=== PATIENT | male | born 1995 | race Caucasian/White ===

== ENCOUNTER → 2018-08-27 | Emergency (ER) | payer BC, OTHER ==
[~2018-08-27] VITALS: Ht 182.9 cm; Wt 130.6 kg
[~2018-08-27] MED LIST: CATHETER FLUSH 10 ML SYR IV PRN; FAMOTIDINE 20MG/2ML IV (PEPCID) IVP STA; IOPAMIDOL 61% 100 ML (ISOVUE 300) VIAL IV ONE; METF-399 PO; NS 100 ML (IVPB) BAG IV ONE; NS IV 1000 ML 1,000 ML IV STA; ONDA8TAB13 PO; RECEIVED CONTRAST 20 ML VIAL IV SCH; SERT100T PO; TRAZ-189 PO
--- NOTE | 2018-08-27 18:40 | ED GI ---
General Chief Complaint: Abdominal/GI Problems Stated Complaint: ABD PAIN,VOMITING Nursing Triage Note: WOKE UP THIS AM ABOUT 0800 WITH EPIGASTRIC ABD PAIN AND HAS VOMITED 3 TIMES SINCE THIS AM. HE WENT TO WALK IN CARE AND WAS SENT HERE FOR IMAGING. REPORTS WALK IN CARE GAVE HIM A ZOFRAN ODT. Sepsis Screen: No Definite Risk History of Present Illness Date Seen by Provider: Aug 27, 2018 Time Seen by Provider: 18:10 Timing/Duration: 1-2 Days Severity/Quality: Moderate Location: RUQ, Epigastric Radiation: No Radiation Activities at Onset: None Modifying Factors: Improves With Vomiting Associated Symptoms: Fever/Chills, Nausea/Vomiting This is a 23-year-old male who complains of one day and intermittent nonbilious nonbloody vomiting and epigastric pain. The pain waxes and wanes without modifying factors. His nausea improved after getting Zofran at urgent care. He has had a subjective fever. Bowel movements are unchanged, not black, not bloody. No history of abdominal surgeries. Allergies and Home Medications Allergies Coded Allergies: amoxicillin (Verified Allergy, Severe, ANAPHYLAXIS, 08/27/18) clavulanic acid (Verified Allergy, Severe, ANAPHYLAXIS, 08/27/18) Patient Home Medication List Home Medication List Reviewed: Yes Review of Systems Review of Systems Constitutional: see HPI EENTM: No Symptoms Reported Respiratory: No Symptoms Reported Cardiovascular: No Symptoms Reported Gastrointestinal: See HPI Genitourinary: No Symptoms Reported Musculoskeletal: no symptoms reported Skin: no symptoms reported Psychiatric/Neurological: No Symptoms Reported Endocrine: No Symptoms Reported Hematologic/Lymphatic: No Symptoms Reported Past Kumqnrs-Dndpcu-Hzphrt Hx Past Med/Social Hx: Reviewed Nursing Past Med/Soc Hx Patient Social History Alcohol Use: Denies Use Recreational Drug Use: No Recent Foreign Travel: No Contact w/Someone Who Travel: No Recent Infectious Disease Expo: No Recent Hopitalizations: No Physical Abuse: No Sexual Abuse: No Mistreated: No Fear: No Seasonal Allergies Seasonal Allergies: No Past Medical History Surgeries: Yes Orthopedic, Tonsillectomy Respiratory: No Cardiac: No Neurological: No Genitourinary: No Gastrointestinal: No Musculoskeletal: No Endocrine: Yes Diabetes, Non-Insulin dep HEENT: No Cancer: No Psychosocial: Yes Depression Integumentary: No Blood Disorders: No Physical Exam Vital Signs Vital Signs - First Documented 08/27/18 18:11 Temp 98.4 Pulse 84 Resp 18 B/P (MAP) 124/74 (91) Pulse Ox 96 O2 Delivery Room Air Capillary Refill : Less Than 3 Seconds Height/Weight/BMI Height: 6'0" Weight: 288lbs. oz. 130.990221dm; BMI Method:Stated General Appearance: no apparent distress HEENT: normal ENT inspection Neck: full range of motion Respiratory: lungs clear Cardiovascular: normal peripheral pulses, regular rate, rhythm Gastrointestinal: other (soft, moderate epigastric and right upper quadrant tenderness with mild right lower quadrant tenderness, no rebound rigidity or guarding, negative Rovsing) Extremities: non-tender, no pedal edema Skin: warm/dry Progress/Results/Core Measures Results/Orders Lab Results Laboratory Tests Test 08/27/18 18:31 08/27/18 20:15 Range/Units White Blood Count 15.6 H 4.3-11.0 10^3/uL Red Blood Count 6.06 H 4.35-5.85 10^6/uL Hemoglobin 19.3 H 13.3-17.7 G/DL Hematocrit 54 40-54 % Mean Corpuscular Volume 89 80-99 FL Mean Corpuscular Hemoglobin 32 25-34 PG Mean Corpuscular Hemoglobin Concent 36 32-36 G/DL Red Cell Distribution Width 12.4 10.0-14.5 % Platelet Count 215 130-400 10^3/uL Mean Platelet Volume 10.3 7.4-10.4 FL Sodium Level 138 135-145 MMOL/L Potassium Level 4.4 3.6-5.0 MMOL/L Chloride Level 97 L 98-107 MMOL/L Carbon Dioxide Level 21 21-32 MMOL/L Anion Gap 20 H 5-14 MMOL/L Blood Urea Nitrogen 13 7-18 MG/DL Creatinine 0.98 0.60-1.30 MG/DL Estimat Glomerular Filtration Rate > 60 BUN/Creatinine Ratio 13 Glucose Level 221 H 70-105 MG/DL Calcium Level 10.7 H 8.5-10.1 MG/DL Corrected Calcium 8.5-10.1 MG/DL Total Bilirubin 0.8 0.1-1.0 MG/DL Aspartate Amino Transf (AST/SGOT) 53 H 5-34 U/L Alanine Aminotransferase (ALT/SGPT) 111 H 0-55 U/L Alkaline Phosphatase 90 40-136 U/L Total Protein 8.8 H 6.4-8.2 GM/DL Albumin 5.0 H 3.2-4.5 GM/DL Lipase 24 8-78 U/L Urine Color YELLOW Urine Clarity CLEAR Urine pH 5.5 5-9 Urine Specific [place] 1.020 1.016-1.022 Urine Protein 1+ H NEGATIVE Urine Glucose (UA) TRACE H NEGATIVE Urine Ketones NEGATIVE NEGATIVE Urine Nitrite NEGATIVE NEGATIVE Urine Bilirubin NEGATIVE NEGATIVE Urine Urobilinogen 0.2 NORMAL MG/DL Urine Leukocyte Esterase NEGATIVE NEGATIVE Urine RBC (Auto) NEGATIVE NEGATIVE My Orders Orders - AUNG VERA DO Ct Abd/Pelv W (Appendicitis) (08/27/18 18:21) Comprehensive Metabolic Panel (08/27/18 18:21) Lipase (08/27/18 18:21) Cbc With Automated Diff (08/27/18 18:21) Famotidine Injection (Pepcid Injection) (08/27/18 18:46) Ns Iv 1000 Ml (Sodium Chloride 0.9%) (08/27/18 18:46) Urinalysis Dipstick Only (08/27/18 18:46) Iopamidol 61% Injection (Isovue 300 61% (08/27/18 19:00) Sodium Chloride Flush (Catheter Flush Sy (08/27/18 19:00) Received Contrast (Contrast Received) (08/27/18 19:00) Ns (Ivpb) (Sodium Chloride 0.9% Ivpb Bag (08/27/18 19:00) Cbc No Diff (08/27/18 19:27) Comprehensive Metabolic Panel (08/27/18 19:27) Lipase (08/27/18 19:27) Medications Given in ED Current Medications Medications Dose Ordered Sig/Emily Route Start Time Stop Time Status Last Admin Dose Admin Iopamidol 100 ml ONCE ONCE IV 08/27/18 19:00 08/27/18 19:01 DC 08/27/18 20:12 100 ML Sodium Chloride 10 ml NEEDED PRN IV 08/27/18 19:00 08/27/18 20:12 10 ML Sodium Chloride 100 ml ONCE ONCE IV 08/27/18 19:00 08/27/18 19:01 DC 08/27/18 20:12 100 ML Vital Signs/I&O 08/27/18 18:11 Temp 98.4 Pulse 84 Resp 18 B/P (MAP) 124/74 (91) Pulse Ox 96 O2 Delivery Room Air Blood Pressure Mean: 91 Progress Progress Note : Progress Note Differential includes gastroenteritis, gastritis, peptic ulcer disease, ileocolic, cholecystitis, appendicitis. We will check basic labs and a CT of the abdomen and pelvis with IV contrast. Departure Impression Primary Impression: Nausea and vomiting Additional Impressions: Fatty liver Hyperglycemia Disposition: HOME, SELF-CARE Condition: Stable Departure-Patient Inst. Referrals: DASH MARR MD (PCP) Primary Care Physician TIFFANY AGUIAR DO (Family) Primary Care Physician Patient Instructions: Nausea and Vomiting, Adult (DC) Scripts Ondansetron (Ondansetron Odt) 8 Mg Tab.rapdis 8 MG PO BID PRN for NAUSEA/VOMITING-1ST LINE for 7 Days, #20 TAB Prov: AUNG VERA DO 08/27/18 AUNG VERA DO Aug 27, 2018 18:40
[2018-08-27 19:40] LABS: HEMOGLOBIN 19.3 G/DL (13.3-17.7); MEAN PLATELET VOLUME 10.3 FL (7.4-10.4); RED CELL DISTRIBUTION WIDTH 12.4 % (10.0-14.5); WHITE BLOOD COUNT 15.6 10^3/uL (4.3-11.0)
[2018-08-27 19:51] LABS: BUN/CREATININE RATIO 13; CARBON DIOXIDE 21 MMOL/L (21-32); CHLORIDE 97 MMOL/L (98-107); CREATININE SERUM 0.98 MG/DL (0.60-1.30); GFR ESTIMATED > 60; POTASSIUM 4.4 MMOL/L (3.6-5.0); SODIUM 138 MMOL/L (135-145)
[2018-08-27 19:52] LABS: ALANINE AMINOTRANSFERASE 111 U/L (0-55); ALKALINE PHOSPHATASE 90 U/L (40-136); BILIRUBIN,TOTAL 0.8 MG/DL (0.1-1.0); CALCIUM 10.7 MG/DL (8.5-10.1); GLUCOSE 221 MG/DL (70-105); LIPASE 24 U/L (8-78); TOTAL PROTEIN 8.8 GM/DL (6.4-8.2)
[2018-08-27 20:23] LABS: BILIRUBIN,URINE NEGATIVE (NEGATIVE); CLARITY,URINE CLEAR; COLOR,URINE YELLOW; GLUCOSE, URINE (UA) TRACE (NEGATIVE); KETONES,URINE NEGATIVE (NEGATIVE); LEUKOCYTE ESTERASE ,URINE NEGATIVE (NEGATIVE); NITRITE,URINE NEGATIVE (NEGATIVE); PH,URINE 5.5 (5-9); PROTEIN,URINE 1+ (NEGATIVE); UROBILINOGEN,URINE 0.2 MG/DL (NORMAL)
--- NOTE | 2018-08-27 20:30 | Diagnostic Imaging Report ---
PROCEDURE: CT abdomen and pelvis with contrast, rule out appendicitis. TECHNIQUE: Multiple contiguous axial images were obtained through the abdomen and pelvis after the administration of intravenous contrast. INDICATION: Epigastric pain and vomiting. COMPARISON: None. FINDINGS: There is no appendicitis. There is no diverticulitis. There is fatty infiltration of the liver without bile duct dilatation. There is no CT findings of pancreatitis. The adrenals, spleen and kidneys are unobstructed and unremarkable. There is no pneumatosis. There is no free gas. There is some thickening of the rojas of the urinary bladder; however, it is poorly distended limiting its evaluation. There is questionable findings for thickening of the rojas of the lower rectum but it is also nondistended. No perirectal edema. No fluid collection. No pneumatosis. No free gas. IMPRESSION: 1. No evidence for appendicitis. Questionable findings for thickening of the undistended urinary bladder wall and rectal wall. 2. Fatty liver without biliary dilatation or pancreatitis. Dictated by: Dictated on workstation # [id number]
[2018-08-27 20:50] VITALS: BP 124/74
== END | disposition home or self-care (01) ==
LOC: EDUNIT# 17:49 → ER FS 17:51
DX: R11.2 Nausea with vomiting, unspecified (principal); K76.0 Fatty (change of) liver, not elsewhere classified; E11.65 Type 2 diabetes mellitus with hyperglycemia; F32.9 Major depressive disorder, single episode, unspecified; Z88.0 Allergy status to penicillin; Z88.8 Allergy status to other drugs, medicaments and biological substances; Z90.89 Acquired absence of other organs
CPT/HCPCS: 36415; 74177; 80053; 81002; 83690; 85027

== ENCOUNTER 2020-10-11 08:35 | Emergency (ER) | payer OTHER ==
[~2020-10-11] VITALS: Ht 182.9 cm; Wt 121.9 kg
[~2020-10-11 08:35] MED LIST changes: -CATHETER FLUSH 10 ML SYR IV PRN; -FAMOTIDINE 20MG/2ML IV (PEPCID) IVP STA; -IOPAMIDOL 61% 100 ML (ISOVUE 300) VIAL IV ONE; -NS 100 ML (IVPB) BAG IV ONE; -NS IV 1000 ML 1,000 ML IV STA; -RECEIVED CONTRAST 20 ML VIAL IV SCH; -TRAZ-189 PO; +TRZ50T PO
[2020-10-11] MEDS ORDERED: KETOROLAC 30 MG/ML VIAL IVP STA (08:56)
[2020-10-11] MEDS ORDERED: PANTOPRAZOLE 40 MG (PROTONIX) VIAL IV STA (08:56)
[2020-10-11] MEDS ORDERED: ONDANSETRON 4 MG/2 ML (SDV) Z0FRAN IVP STA (08:56)
[2020-10-11] MEDS ORDERED: NS IV 1000 ML 1,000 ML IV STA ×2 (08:56→10:25)
--- NOTE | 2020-10-11 09:04 | ED GI ---
General Chief Complaint: Abdominal/GI Problems Stated Complaint: N/V | DIARRHEA | TICK BITE Nursing Triage Note: Patient reports he has had nausea/vomiting/diarrhea for 1 week, states food tastes and smells "gross." Sepsis Screen: No Definite Risk Source of Information: Patient History of Present Illness Date Seen by Provider: Oct 11, 2020 Time Seen by Provider: 08:37 Initial Comments 25-year-old male presenting with complaints of over a week of nausea, vomiting, diarrhea. He states that the smell and taste of food makes him nauseated. He had a tick bite about a week prior to onset of symptoms so was concerned that was causing some of this for him and he went [facility] and they ran a tick borne illness panel. This was negative per patient's report. He has an appointment to see his primary care provider, Dr. Dash Marr. However this appointment is not until next week. He felt that he could not wait until then since he was feeling worse in the last 2 or 3 days. He denies any fever or chills. He feels like he gets dizzy and lightheaded when he stands up. He has had over 6 yellow-colored diarrhea stools the last 24 hours. He did keep water down around 1 AM but has not had anything to eat since yesterday. He has increased pain when he tries to eat or drink anything. He also has increased pain when he has a bowel movement. He feels like he has an aching pain at a 4 out of 10 in the right upper quadrant. This does wrap around to the right side and flank. He denies any pain or burning with urination. He has increased pain up to a 7 or 8 when the area is palpated or when he is bending over. He has not taken anything for pain or for nausea. He denies any surgeries on his abdomen in the past. Timing/Duration: 1 Week, Getting Worse Severity/Quality: Moderate, Aching Location: RUQ Radiation: Flank Activities at Onset: None Modifying Factors: Worsens With Defecating, Worsens With Eating, Worsens With Movement, Worsens With Palpation Associated Symptoms: No Back Pain, No Chest Pain, No Diaphoresis, No Fever/Chills, No Fatigue, No Headache, No Heartburn; Nausea/Vomiting; No Rash, No Shortness of Air, No Swelling/Mass in Abdomen, No Syncope, No Weakness Allergies and Home Medications Allergies Coded Allergies: amoxicillin (Verified Allergy, Severe, ANAPHYLAXIS, 08/27/18) clavulanic acid (Verified Allergy, Severe, ANAPHYLAXIS, 08/27/18) Home Medications Ondansetron 8 Mg Tab.rapdis, 8 MG PO BID PRN for NAUSEA/VOMITING-1ST LINE Prescribed by: IGGY MCRAE on 10/11/20 1143 Patient Home Medication List Home Medication List Reviewed: Yes Review of Systems Review of Systems Constitutional: No chills; dizziness (with standing); No fever EENTM: No Symptoms Reported Respiratory: No Symptoms Reported Cardiovascular: No Symptoms Reported Gastrointestinal: See HPI Genitourinary: See HPI Musculoskeletal: no symptoms reported Skin: No rash Psychiatric/Neurological: Denies Headache Endocrine: No Symptoms Reported Hematologic/Lymphatic: No Symptoms Reported Past Httaxya-Kpenof-Qnjvnl Hx Past Med/Social Hx: Reviewed Nursing Past Med/Soc Hx Patient Social History Alcohol Use: Denies Use Smoking Status: Never a Smoker 2nd Hand Smoke Exposure: No Recent Infectious Disease Expo: No Recent Hopitalizations: No Seasonal Allergies Seasonal Allergies: No Past Medical History Surgeries: Yes Orthopedic, Tonsillectomy Respiratory: No Cardiac: No Neurological: No Genitourinary: No Gastrointestinal: No Musculoskeletal: No Endocrine: Yes Diabetes, Non-Insulin dep HEENT: No Cancer: No Psychosocial: Yes Depression Integumentary: No Blood Disorders: No Physical Exam Vital Signs Vital Signs - First Documented 10/11/20 08:38 Temp 36.1 Pulse 90 Resp 16 B/P (MAP) 144/84 (104) Pulse Ox 97 O2 Delivery Room Air Capillary Refill : Less Than 3 Seconds Height/Weight/BMI Height: 6'0" Weight: 288lbs. oz. 130.162021du; 36.00 BMI Method:Stated General Appearance: WD/WN, no apparent distress, obese HEENT: PERRL/EOMI Neck: non-tender, full range of motion, supple, normal inspection Respiratory: chest non-tender, lungs clear, normal breath sounds, no respiratory distress, no accessory muscle use Cardiovascular: normal peripheral pulses, regular rate, rhythm Gastrointestinal: normal bowel sounds, soft, no pulsatile mass; No distended, No guarding, No rebound; tenderness (RUQ positive Garcia's sign); No mass Rectal: deferred Extremities: normal range of motion, normal capillary refill Neurologic/Psychiatric: director of maintenance II-XII nml as tested, alert, oriented x 3 Skin: normal color, warm/dry Images 1 - RUQ pain with palpation. Pain wraps around right flank. No rebound. Positive Garcia's Progress/Results/Core Measures Results/Orders Lab Results Laboratory Tests Test 10/11/20 09:15 10/11/20 10:03 Range/Units White Blood Count 5.8 4.3-11.0 10^3/uL Red Blood Count 5.54 4.35-5.85 10^6/uL Hemoglobin 17.6 13.3-17.7 G/DL Hematocrit 48 40-54 % Mean Corpuscular Volume 87 80-99 FL Mean Corpuscular Hemoglobin 32 25-34 PG Mean Corpuscular Hemoglobin Concent 37 H 32-36 G/DL Red Cell Distribution Width 11.8 10.0-14.5 % Platelet Count 159 130-400 10^3/uL Mean Platelet Volume 10.1 7.4-10.4 FL Immature Granulocyte % (Auto) 1 % Neutrophils (%) (Auto) 57 42-75 % Lymphocytes (%) (Auto) 28 12-44 % Monocytes (%) (Auto) 8 0-12 % Eosinophils (%) (Auto) 6 0-10 % Basophils (%) (Auto) 0 0-10 % Neutrophils # (Auto) 3.3 1.8-7.8 X 10^3 Lymphocytes # (Auto) 1.7 1.0-4.0 X 10^3 Monocytes # (Auto) 0.5 0.0-1.0 X 10^3 Eosinophils # (Auto) 0.3 0.0-0.3 10^3/uL Basophils # (Auto) 0.0 0.0-0.1 10^3/uL Immature Granulocyte # (Auto) 0.0 0.0-0.1 10^3/uL Sodium Level 137 135-145 MMOL/L Potassium Level 3.9 3.6-5.0 MMOL/L Chloride Level 102 98-107 MMOL/L Carbon Dioxide Level 25 21-32 MMOL/L Anion Gap 10 5-14 MMOL/L Blood Urea Nitrogen 9 7-18 MG/DL Creatinine 0.85 0.60-1.30 MG/DL Estimat Glomerular Filtration Rate > 60 BUN/Creatinine Ratio 11 Glucose Level 293 H 70-105 MG/DL Calcium Level 9.3 8.5-10.1 MG/DL Corrected Calcium 9.2 8.5-10.1 MG/DL Total Bilirubin 0.7 0.1-1.0 MG/DL Aspartate Amino Transf (AST/SGOT) 24 5-34 U/L Alanine Aminotransferase (ALT/SGPT) 51 0-55 U/L Alkaline Phosphatase 71 40-136 U/L Total Protein 6.6 6.4-8.2 GM/DL Albumin 4.1 3.2-4.5 GM/DL Lipase 28 8-78 U/L Urine Color DARK YELLOW Urine Clarity CLEAR Urine pH 5.5 5-9 Urine Specific [place] >=1.030 1.016-1.022 Urine Protein NEGATIVE NEGATIVE Urine Glucose (UA) 3+ H NEGATIVE Urine Ketones 1+ H NEGATIVE Urine Nitrite NEGATIVE NEGATIVE Urine Bilirubin NEGATIVE NEGATIVE Urine Urobilinogen 0.2 < = 1.0 MG/DL Urine Leukocyte Esterase NEGATIVE NEGATIVE Urine RBC (Auto) NEGATIVE NEGATIVE Urine RBC 0-2 /HPF Urine WBC 0-2 /HPF Urine Squamous Epithelial Cells 0-2 /HPF Urine Crystals NONE /LPF Urine Bacteria NEGATIVE /HPF Urine Casts NONE /LPF Urine Mucus NEGATIVE /LPF Urine Culture Indicated NO My Orders Orders - IGGY MCRAE MD Comprehensive Metabolic Panel (10/11/20 08:54) Lipase (10/11/20 08:54) Ua Culture If Indicated (10/11/20 08:54) Ed Iv/Invasive Line Start (10/11/20 08:54) Cbc With Automated Diff (10/11/20 08:54) Ct Abdomen/Pelvis W (10/11/20 08:54) Fecal Wbc (10/11/20 08:54) Isolation Central Supply Req (10/11/20 08:54) Ns Iv 1000 Ml (Sodium Chloride 0.9%) (10/11/20 08:56) Ondansetron Injection (Zofran Injectio (10/11/20 08:56) Pantoprazole Injection (Protonix Injecti (10/11/20 08:56) Ketorolac Injection (Toradol Injection) (10/11/20 08:56) Iohexol Injection (Omnipaque 350 Mg/Ml 1 (10/11/20 09:45) Received Contrast (Hold Metformin- Contr (10/11/20 09:45) Sodium Chloride Flush (Catheter Flush Sy (10/11/20 09:45) Ns (Ivpb) (Sodium Chloride 0.9% Ivpb Bag (10/11/20 09:45) Ns Iv 1000 Ml (Sodium Chloride 0.9%) (10/11/20 10:25) Us Abdomen Limited [id number] (10/11/20 10:44) Medications Given in ED Current Medications Medications Dose Ordered Sig/Emily Route Start Time Stop Time Status Last Admin Dose Admin Iohexol 100 ml ONCE ONCE IV 10/11/20 09:45 10/11/20 09:47 DC 10/11/20 10:06 100 ML Sodium Chloride 10 ml NEEDED PRN IV 10/11/20 09:45 10/11/20 11:54 DC 10/11/20 10:06 10 ML Sodium Chloride 100 ml ONCE ONCE IV 10/11/20 09:45 10/11/20 09:47 DC 10/11/20 10:06 80 ML Vital Signs/I&O 10/11/20 10/11/20 08:38 11:49 Temp 36.1 Pulse 90 77 Resp 16 16 B/P (MAP) 144/84 (104) 132/76 Pulse Ox 97 98 O2 Delivery Room Air Room Air Blood Pressure Mean: 104 Progress Progress Note #1: Progress Note Order labs to evaluate blood count as well as electrolytes and liver and pancreas. CT scan of the abdomen and pelvis to evaluate his abdomen for the colon as well as liver, gallbladder, pancreas, kidneys and stomach. Give IV fluids for hydration, Zofran for nausea, Toradol for pain, Protonix for pain and gastritis. If he has diarrhea stool here will send for cultures and evaluation. Differential diagnosis would include cholecystitis, gastroenteritis, parasitic infection such as Giardia, appendicitis, colitis, diverticulitis, GERD with gastritis and esophagitis, pancreatitis Progress Note #2: Progress Note labs do not show elevated WBC or left shift. Chemistry stable without elevation of LFTs or Lipase but he does have elevated glucose of 293. He gave Urine specimen while in CT/radiology department. He does report feeling better from treatment but on exam still has tenderness to palpation in RUQ. Progress Note #3: Progress Note Urine shows elevated specific gravity for dehydration so will repeat NS Liter bolus. No infection findings on UA. CT scan did not show acute significant findings. Will add on ultrasound to further evaluate the gallbladder. pt declined needing anything further for nausea or pain. Progress Note #4: Progress Note Ultrasound did not show any acute significant abnormality either. He does have fatty liver which also showed up on the CT. This was similar to CT scan from August 2018. Discussed with the patient about symptomatic treatment at home with nausea medicine. He declined stronger pain medicine and stated he would use [id number] NSAIDs and Tylenol if needed. Advised to try using an acid it infrastructure architect such as Pepcid, Prilosec, Nexium, Prevacid to help with stomach protection. Use dissolving Zofran tablets to help with nausea. Will refill the medicine he got from 2019 when he had nausea vomiting diarrhea and abdominal pain. Counseled patient that he may still need stool studies if the diarrhea persist or he may need any nuclear medicine test to evaluate his gallbladder more if he continues to have pain with eating. He has an appointment to follow- up with Dr. Marr next week so advised to keep that. Counseled on follow-up and return precautions if he has worsening symptoms before he is seen by his primary care Diagnostic Imaging Diagonstic Imaging: CT Plain Films/CT/US/NM/MRI: abdomen, pelvis Comments NAME: KODY ZACARIAS [facility] REC#: [id number] PT STATUS: REG ER : 1995 PHYSICIAN: IGGY MCRAE MD ADMIT DATE: 10/11/20/ER FS Draft Date of Exam:10/11/20 CT ABDOMEN/PELVIS W PROCEDURE: CT abdomen and pelvis with contrast. TECHNIQUE: Multiple contiguous axial images were obtained through the abdomen and pelvis after administration of intravenous contrast. Auto Exposure Controls were utilized during the CT exam to meet ALARA standards for radiation dose reduction. All CT scans use one or more of the following dose optimizing techniques: automated exposure control, MA and/or KvP adjustment based on patient size and exam type or iterative reconstruction. INDICATION: Abdominal pain with nausea and vomiting. FINDINGS: Lung bases are clear. Good enhancement of the aorta and abdominal vessels. Vessels appear normal. There is diffuse fatty change of the liver. No evidence of gallstones. Gallbladder not distended. Bile ducts are not dilated. Pancreas and spleen are normal. The adrenal glands are normal. The kidneys are normal. The stomach and small bowel are not distended. The colon shows normal stool and gas pattern. The appendix is visualized and normal. There is mild diverticulosis of the sigmoid colon without evidence of diverticulitis. Bladder is not distended. No free air or free fluid. No intra-abdominal adenopathy of pathologic size. Sagittal reformatted images show bilateral spondylolysis of L5 with grade 1 spondylolisthesis. IMPRESSION: 1. Fatty changes of the liver similar in appearance to previous exam. 2. The appendix is normal. No finding to suggest inflammatory bowel changes. 3. Bilateral spondylolysis of L5 with grade 1 spondylolisthesis. Dictated on workstation # [id number] Dict: 10/11/20 1031 Trans: 10/11/20 1037 [facility] [id number] Interpreted by: BREONNA BREWER MD Electronically signed by: Diagonstic Imaging: Ultrasound Plain Films/CT/US/NM/MRI: abdomen Comments [facility] [place] [place] NAME: KODY ZACARIAS [facility] REC#: [id number] PT STATUS: DEP ER : 1995 PHYSICIAN: IGGY MCRAE MD ADMIT DATE: 10/11/20/ER FS Draft Date of Exam:10/11/20 US ABDOMEN LIMITED [id number] PROCEDURE: US Abdomen, limited. TECHNIQUE: Multiple realtime grayscale images were obtained over the abdomen in various projections. INDICATION: Right upper quadrant pain, nausea, vomiting, diarrhea, symptoms of one week's duration. Correlated with CT of same date. FINDINGS: There is an echodense fatty liver present. No bile duct dilatation. The gallbladder appeared normal. The visualized portions of the pancreas unremarkable. The aorta and IVC nonaneurysmal. The unobstructed right kidney appeared normal. There is no ascites. No fluid collection. IMPRESSION: Fatty liver otherwise unremarkable. Dictated on workstation # [id number] Dict: 10/11/20 1221 Trans: 10/11/20 1224 [id number] Interpreted by: JAN LIND Electronically signed by: Departure Impression Primary Impression: Nausea vomiting and diarrhea Additional Impression: Right upper quadrant abdominal pain Disposition: 01 HOME, SELF-CARE Condition: Improved Departure-Patient Inst. Decision time for Depature: 11:38 Referrals: DASH MARR MD (PCP/Family) Primary Care Physician Patient Instructions: Abdominal Pain, Adult ED, [place] Diet, CLEAR LIQUID DIET ADULT/CHILD, Diarrhea, Adult ED, Full Liquid Diet, Nausea and Vomiting, Adult ED Add. Discharge Instructions: Use the dissolving nausea medicine to help settle your stomach so you can drink and eat better. Try Aleve or Advil to help with pain and inflammation. While taking this consider taking Pepcid, Prilosec, Prevacid, or Nexium type medicine to help with stomach acid and keep the lining of your stomach from getting irritated. For the next 24 hours follow a liquid diet and then advance as you tolerate to a bland low fat and soft diet. Hold your Metformin and do not take any of that for the next 48 hours since you had IV contrast with your CAT scan. If you take it in the next 48 hours the medicine can cause damage to your kidneys. If you have fever over 101 Fahrenheit, increased pain despite medicine, uncontrolled nausea and vomiting despite medicine, those would all be reasons to be seen again and be reevaluated. Otherwise follow-up with Dr. Marr as scheduled. You may need other testing such as cultures and testing of your diarrhea stool if that persists. You may also need a special nuclear medicine test of your gallbladder if you continue to have pain and nausea and vomiting when you try to eat. All discharge instructions reviewed with patient and/or family. Voiced understanding. Scripts Ondansetron (Ondansetron Odt) 8 Mg Tab.rapdis 8 MG PO BID PRN for NAUSEA/VOMITING-1ST LINE for 7 Days, #20 TAB Prov: IGGY MCRAE MD 10/11/20 Work/School Note: Work Release Form Date Seen in the Emergency Department: Oct 11, 2020 Return to Work: Oct 12, 2020 Restrictions: No Restrictions IGGY MCRAE MD Oct 11, 2020 09:04
[2020-10-11 09:33] LABS: HEMOGLOBIN 17.6 G/DL (13.3-17.7); MEAN CORPUSCULAR HEMOGLOBIN 32 PG (25-34); WHITE BLOOD COUNT 5.8 10^3/uL (4.3-11.0)
[2020-10-11 09:34] LABS: BASOPHILS % (AUTO) 0 % (0-10); EOSINOPHILS # (AUTO) 0.3 10^3/uL (0.0-0.3); EOSINOPHILS % (AUTO) 6 % (0-10); HEMATOCRIT 48 % (40-54); LYMPHOCYTES # (AUTO) 1.7 X 10^3 (1.0-4.0); LYMPHOCYTES % (AUTO) 28 % (12-44); MEAN CORPUSCULAR HGB CONC 37 G/DL (32-36); MEAN CORPUSCULAR VOLUME 87 FL (80-99); MEAN PLATELET VOLUME 10.1 FL (7.4-10.4); MONOCYTES # (AUTO) 0.5 X 10^3 (0.0-1.0); MONOCYTES % (AUTO) 8 % (0-12); NEUTROPHILS # (AUTO) 3.3 X 10^3 (1.8-7.8); NEUTROPHILS % (AUTO) 57 % (42-75); PLATELET COUNT 159 10^3/uL (130-400)
[2020-10-11] MEDS ORDERED: CATHETER FLUSH 10 ML SYR IV PRN (09:45)
[2020-10-11] MEDS ORDERED: NS 100 ML (IVPB) BAG IV ONE (09:45)
[2020-10-11] MEDS ORDERED: HOLD METFORMIN - RECEIVED CONTRAST 20 ML VIAL IV SCH (09:45)
[2020-10-11] MEDS ORDERED: IOHEXOL 350 MG/ML 100 ML (OMNIPAQUE 350) VIAL IV ONE (09:45)
[2020-10-11 09:50] LABS: CHLORIDE 102 MMOL/L (98-107); POTASSIUM 3.9 MMOL/L (3.6-5.0); SODIUM 137 MMOL/L (135-145)
[2020-10-11 09:51] LABS: ALANINE AMINOTRANSFERASE 51 U/L (0-55); ALBUMIN 4.1 GM/DL (3.2-4.5); ALKALINE PHOSPHATASE 71 U/L (40-136); BILIRUBIN,TOTAL 0.7 MG/DL (0.1-1.0); BUN/CREATININE RATIO 11; CALCIUM 9.3 MG/DL (8.5-10.1); CARBON DIOXIDE 25 MMOL/L (21-32); CREATININE SERUM 0.85 MG/DL (0.60-1.30); GFR ESTIMATED > 60; GLUCOSE 293 MG/DL (70-105); LIPASE 28 U/L (8-78); TOTAL PROTEIN 6.6 GM/DL (6.4-8.2)
[2020-10-11 10:22] LABS: CLARITY,URINE CLEAR; COLOR,URINE DARK YELLOW; PH,URINE 5.5 (5-9); PROTEIN,URINE NEGATIVE (NEGATIVE)
[2020-10-11 10:23] LABS: BACTERIA,URINE NEGATIVE /HPF; BILIRUBIN,URINE NEGATIVE (NEGATIVE); GLUCOSE, URINE (UA) 3+ (NEGATIVE); KETONES,URINE 1+ (NEGATIVE); LEUKOCYTE ESTERASE ,URINE NEGATIVE (NEGATIVE); NITRITE,URINE NEGATIVE (NEGATIVE); RBC,URINE 0-2 /HPF; SQUAMOUS EPITHELIAL CELL,UR 0-2 /HPF; WBC,URINE 0-2 /HPF
--- NOTE | 2020-10-11 10:38 | Diagnostic Imaging Report ---
PROCEDURE: CT abdomen and pelvis with contrast. TECHNIQUE: Multiple contiguous axial images were obtained through the abdomen and pelvis after administration of intravenous contrast. Auto Exposure Controls were utilized during the CT exam to meet ALARA standards for radiation dose reduction. All CT scans use one or more of the following dose optimizing techniques: automated exposure control, MA and/or KvP adjustment based on patient size and exam type or iterative reconstruction. INDICATION: Abdominal pain with nausea and vomiting. FINDINGS: Lung bases are clear. Good enhancement of the aorta and abdominal vessels. Vessels appear normal. There is diffuse fatty change of the liver. No evidence of gallstones. Gallbladder not distended. Bile ducts are not dilated. Pancreas and spleen are normal. The adrenal glands are normal. The kidneys are normal. The stomach and small bowel are not distended. The colon shows normal stool and gas pattern. The appendix is visualized and normal. There is mild diverticulosis of the sigmoid colon without evidence of diverticulitis. Bladder is not distended. No free air or free fluid. No intra-abdominal adenopathy of pathologic size. Sagittal reformatted images show bilateral spondylolysis of L5 with grade 1 spondylolisthesis. IMPRESSION: 1. Fatty changes of the liver similar in appearance to previous exam. 2. The appendix is normal. No finding to suggest inflammatory bowel changes. 3. Bilateral spondylolysis of L5 with grade 1 spondylolisthesis. Dictated by: Dictated on workstation # [id number]
[2020-10-11] MEDS ORDERED: ONDA8TAB13 PO (11:43)
[2020-10-11 11:49] VITALS: BP 132/76
--- NOTE | 2020-10-11 12:24 | Diagnostic Imaging Report ---
PROCEDURE: US Abdomen, limited. TECHNIQUE: Multiple realtime grayscale images were obtained over the abdomen in various projections. INDICATION: Right upper quadrant pain, nausea, vomiting, diarrhea, symptoms of one week's duration. Correlated with CT of same date. FINDINGS: There is an echodense fatty liver present. No bile duct dilatation. The gallbladder appeared normal. The visualized portions of the pancreas unremarkable. The aorta and IVC nonaneurysmal. The unobstructed right kidney appeared normal. There is no ascites. No fluid collection. IMPRESSION: Fatty liver otherwise unremarkable. Dictated by: Dictated on workstation # [id number]
[2020-10-11] MEDS ORDERED: OXYC1TAB87 PO (21:34)
== END 2020-10-11 11:54 | disposition home or self-care (01) ==
LOC: EDUNIT# 08:35 → ER FS 08:39
DX: R11.2 Nausea with vomiting, unspecified (principal); R19.7 Diarrhea, unspecified; R10.11 Right upper quadrant pain; E66.9 Obesity, unspecified; E11.9 Type 2 diabetes mellitus without complications; Z68.36 Body mass index [BMI] 36.0-36.9, adult; Z88.1 Allergy status to other antibiotic agents
CPT/HCPCS: 36415; 74177; 76705; 80053; 81000; 83690; 85025

== ENCOUNTER 2020-10-11 20:13 | Emergency (ER) | payer OTHER ==
[~2020-10-11] VITALS: Ht 182.9 cm; Wt 120.2 kg
--- NOTE | 2020-10-11 20:56 | ED Abdominal Pain ---
General Stated Complaint: ABD PAIN Source of Information: Patient Exam Limitations: No Limitations History of Present Illness Date Seen by Provider: Oct 11, 2020 Time Seen by Provider: 20:55 Initial Comments To ER by private vehicle with reports of right upper quadrant abdominal pain nausea and vomiting. He was seen at [place] emergency room earlier today and had lab work CT scan and ultrasound done. CT scan and ultrasound of the gallbladder were unremarkable for acute pathology and it was recommended he get set up for a hepatobiliary scan. He presents tonight with worsening of the pain in the right upper quadrant. The nausea is well controlled with Zofran. Timing/Duration: 4-5 Days Severity/Quality: Moderate Location: RUQ Radiation: No Radiation Activities at Onset: None Associated Symptoms: Denies Symptoms Allergies and Home Medications Allergies Coded Allergies: amoxicillin (Verified Allergy, Severe, ANAPHYLAXIS, 08/27/18) clavulanic acid (Verified Allergy, Severe, ANAPHYLAXIS, 08/27/18) Home Medications Ondansetron 8 Mg Tab.rapdis, 8 MG PO BID PRN for NAUSEA/VOMITING-1ST LINE Prescribed by: IGGY MCRAE on 10/11/20 1143 Oxycodone HCl/Acetaminophen 1 Each Tablet, 1 TAB PO Q4H Prescribed by: RACHEL CALDERÓN on 10/11/20 2134 Patient Home Medication List Home Medication List Reviewed: Yes Review of Systems Review of Systems Constitutional: see HPI EENTM: No Symptoms Reported Respiratory: No Symptoms Reported Cardiovascular: No Symptoms Reported Gastrointestinal: See HPI, Abdominal Pain Genitourinary: No Symptoms Reported Musculoskeletal: no symptoms reported Skin: no symptoms reported Psychiatric/Neurological: No Symptoms Reported Endocrine: No Symptoms Reported Hematologic/Lymphatic: No Symptoms Reported Past Iyodhku-Weliwl-Brtdmz Hx Patient Social History 2nd Hand Smoke Exposure: No Recent Hopitalizations: No Seasonal Allergies Seasonal Allergies: No Past Medical History Surgeries: Yes Orthopedic, Tonsillectomy Respiratory: No Cardiac: No Neurological: No Genitourinary: No Gastrointestinal: No Musculoskeletal: No Endocrine: Yes Diabetes, Non-Insulin dep HEENT: No Cancer: No Psychosocial: Yes Depression Integumentary: No Blood Disorders: No Physical Exam Vital Signs Vital Signs - First Documented 10/11/20 20:20 Temp 36.2 Pulse 80 Resp 16 B/P (MAP) 134/91 (105) Pulse Ox 98 O2 Delivery Room Air Capillary Refill : Height/Weight/BMI Height: 6'0" Weight: 288lbs. oz. [id number]; 36.00 BMI Method:Stated General Appearance: WD/WN, no apparent distress, obese Respiratory: no respiratory distress, no accessory muscle use Gastrointestinal: normal bowel sounds, soft, tenderness Extremities: normal range of motion, non-tender Neurologic/Psychiatric: alert, normal mood/affect, oriented x 3 Skin: normal color, warm/dry Progress/Results/Core Measures Results/Orders Lab Results Laboratory Tests Test 10/11/20 20:45 Range/Units White Blood Count 7.6 4.3-11.0 10^3/uL Red Blood Count 5.67 H 4.30-5.52 10^6/uL Hemoglobin 18.1 H 13.3-17.7 g/dL Hematocrit 50 40-54 % Mean Corpuscular Volume 89 80-99 fL Mean Corpuscular Hemoglobin 32 25-34 pg Mean Corpuscular Hemoglobin Concent 36 32-36 g/dL Red Cell Distribution Width 11.7 10.0-14.5 % Platelet Count 167 130-400 10^3/uL Mean Platelet Volume 10.1 9.0-12.2 fL Immature Granulocyte % (Auto) 0 % Neutrophils (%) (Auto) 50 42-75 % Lymphocytes (%) (Auto) 36 12-44 % Monocytes (%) (Auto) 8 0-12 % Eosinophils (%) (Auto) 5 0-10 % Basophils (%) (Auto) 1 0-10 % Neutrophils # (Auto) 3.8 1.8-7.8 10^3/uL Lymphocytes # (Auto) 2.8 1.0-4.0 10^3/uL Monocytes # (Auto) 0.6 0.0-1.0 10^3/uL Eosinophils # (Auto) 0.4 H 0.0-0.3 10^3/uL Basophils # (Auto) 0.0 0.0-0.1 10^3/uL Immature Granulocyte # (Auto) 0.0 0.0-0.1 10^3/uL Sodium Level 137 135-145 MMOL/L Potassium Level 3.6 3.6-5.0 MMOL/L Chloride Level 102 98-107 MMOL/L Carbon Dioxide Level 23 21-32 MMOL/L Anion Gap 12 5-14 MMOL/L Blood Urea Nitrogen 9 7-18 MG/DL Creatinine 0.98 0.60-1.30 MG/DL Estimat Glomerular Filtration Rate > 60 BUN/Creatinine Ratio 9 Glucose Level 172 H 70-105 MG/DL Calcium Level 9.4 8.5-10.1 MG/DL Corrected Calcium 9.2 8.5-10.1 MG/DL Total Bilirubin 1.3 H 0.1-1.0 MG/DL Aspartate Amino Transf (AST/SGOT) 26 5-34 U/L Alkaline Phosphatase 72 40-136 U/L C-Reactive Protein High Sensitivity 0.17 0.00-0.50 MG/DL Total Protein 7.2 6.4-8.2 GM/DL Albumin 4.3 3.2-4.5 GM/DL My Orders Orders - RACHEL CALDERÓN APRN Cbc With Automated Diff (10/11/20 20:54) Comprehensive Metabolic Panel (10/11/20 20:54) Hs C Reactive Protein (10/11/20 20:54) Lipase (10/11/20 20:54) Ed Iv/Invasive Line Start (10/11/20 20:54) Fentanyl Inj (Sublimaze Injection) (10/11/20 21:00) Ketorolac Injection (Toradol Injection) (10/11/20 21:00) Ns Iv 1000 Ml (Sodium Chloride 0.9%) (10/11/20 21:00) Rx-Oxycodone/Apap 5-325 Mg (Rx-Percocet (10/11/20 21:30) Medications Given in ED Current Medications Medications Dose Ordered Sig/Emily Route Start Time Stop Time Status Last Admin Dose Admin Fentanyl Citrate 50 mcg ONCE ONCE IVP 10/11/20 21:00 10/11/20 21:01 DC 10/11/20 21:04 50 MCG Ketorolac Tromethamine 15 mg ONCE ONCE IVP 10/11/20 21:00 10/11/20 21:01 DC 10/11/20 21:04 15 MG Vital Signs/I&O 10/11/20 20:20 Temp 36.2 Pulse 80 Resp 16 B/P (MAP) 134/91 (105) Pulse Ox 98 O2 Delivery Room Air Departure Communication (Admissions) Spoke with Dr. Thomason. He will plan on seeing the patient in his clinic tomorrow at 1 PM. 2201-Pain currently at 0/10 Impression Primary Impression: Right upper quadrant abdominal pain Disposition: HOME, SELF-CARE Condition: Stable Departure-Patient Inst. Decision time for Depature: 21:17 Referrals: MARTA THOMASON JOHN M MD (PCP/Family) Primary Care Physician Patient Instructions: Abdominal Pain, Adult ED Add. Discharge Instructions: 1. Clear liquids. Pain medication as directed. Continue with the nausea medication. See Dr. Thomason tomorrow at 1 PM. Scripts Oxycodone HCl/Acetaminophen (Percocet 5-325 mg Tablet) 1 Each Tablet 1 TAB PO Q4H for PAIN-MODERATE MDD 6 TABS for 7 Days, #14 TAB Prov: RACHEL CALDERÓN APRN 10/11/20 Work/School Note: Work Release Form Date Seen in the Emergency Department: Oct 11, 2020 Return to Work: Oct 13, 2020 Copy Copies To 1: MARTA THOMASON PETER J APRN Oct 11, 2020 20:56
[2020-10-11 20:59] LABS: BASOPHILS % (AUTO) 1 % (0-10); EOSINOPHILS # (AUTO) 0.4 10^3/uL (0.0-0.3); EOSINOPHILS % (AUTO) 5 % (0-10); HEMATOCRIT 50 % (40-54); HEMOGLOBIN 18.1 g/dL (13.3-17.7); LYMPHOCYTES # (AUTO) 2.8 10^3/uL (1.0-4.0); LYMPHOCYTES % (AUTO) 36 % (12-44); MEAN CORPUSCULAR HEMOGLOBIN 32 pg (25-34); MEAN CORPUSCULAR HGB CONC 36 g/dL (32-36); MEAN CORPUSCULAR VOLUME 89 fL (80-99); MEAN PLATELET VOLUME 10.1 fL (9.0-12.2); MONOCYTES # (AUTO) 0.6 10^3/uL (0.0-1.0); MONOCYTES % (AUTO) 8 % (0-12); NEUTROPHILS # (AUTO) 3.8 10^3/uL (1.8-7.8); NEUTROPHILS % (AUTO) 50 % (42-75); PLATELET COUNT 167 10^3/uL (130-400); WHITE BLOOD COUNT 7.6 10^3/uL (4.3-11.0)
[2020-10-11] MEDS ORDERED: NS IV 1000 ML 1,000 ML IV SCH (21:00)
[2020-10-11] MEDS ORDERED: fentaNYL INJ 100 MCG/2 ML AMP IVP ONE (21:00)
[2020-10-11] MEDS ORDERED: KETOROLAC 30 MG/ML VIAL IVP ONE (21:00)
[2020-10-11 21:14] LABS: ALBUMIN 4.3 GM/DL (3.2-4.5); ALKALINE PHOSPHATASE 72 U/L (40-136); BILIRUBIN,TOTAL 1.3 MG/DL (0.1-1.0); BUN/CREATININE RATIO 9; CALCIUM 9.4 MG/DL (8.5-10.1); CARBON DIOXIDE 23 MMOL/L (21-32); CHLORIDE 102 MMOL/L (98-107); CREATININE SERUM 0.98 MG/DL (0.60-1.30); GFR ESTIMATED > 60; GLUCOSE 172 MG/DL (70-105); POTASSIUM 3.6 MMOL/L (3.6-5.0); SODIUM 137 MMOL/L (135-145); TOTAL PROTEIN 7.2 GM/DL (6.4-8.2)
[2020-10-11] MEDS ORDERED: RX-OXYCODONE/APAP 5-325 MG #4 TAB PK PO PRN (21:30)
[2020-10-11] MEDS ORDERED: OXYC1TAB87 PO (21:34)
[2020-10-11 22:12] VITALS: BP 123/80
[2020-10-11 22:17] LABS: ALANINE AMINOTRANSFERASE 56 U/L (0-55)
[2020-10-11 22:44] LABS: LIPASE 16 U/L (8-78)
== END 2020-10-11 22:12 | disposition home or self-care (01) ==
LOC: EDUNIT# 20:13 → ER 20:15
DX: R10.11 Right upper quadrant pain (principal); E66.9 Obesity, unspecified; E11.9 Type 2 diabetes mellitus without complications; Z68.36 Body mass index [BMI] 36.0-36.9, adult; Z88.1 Allergy status to other antibiotic agents
CPT/HCPCS: 36415; 80053; 83690; 85025; 86141

== ENCOUNTER → 2020-10-13 | Outpatient (CLI) | payer OTHER ==
[~2020-10-13] MED LIST changes: +CATHETER FLUSH 10 ML SYR IV PRN; +OXYC1TAB87 PO
--- NOTE | 2020-10-13 12:50 | Diagnostic Imaging Report ---
INDICATION: Right upper quadrant pain Hepatobiliary scan 5.3 mCi of technetium 99m Choletec was given for the scan. Image was given at 60 minutes and 120 minutes. There is homogeneous uptake of isotope throughout the liver. The cystic duct and common duct are both patent. The ejection fraction was 32%. IMPRESSION: Normal hepatobiliary scan Dictated by: Dictated on workstation # [id number]
== END ==
LOC: CARD 10:00
PROVIDERS: ATTEND Surgery
DX: R10.11 Right upper quadrant pain (principal)
CPT/HCPCS: 78227; A9537

== ENCOUNTER 2020-10-26 05:43 | Outpatient (CLI) | payer OTHER ==
[~2020-10-26] VITALS: Ht 182.9 cm; Wt 119.1 kg
[~2020-10-26 05:43] MED LIST changes: -CATHETER FLUSH 10 ML SYR IV PRN
[2020-10-27] MEDS ORDERED: METF-399 PO (12:18)
[2020-10-27] MEDS ORDERED: TRZ50T PO (12:18)
[2020-10-27] MEDS ORDERED: SERT-414 PO (12:18)
== END 2020-10-30 16:49 | disposition home or self-care (01) ==
LOC: PREOP 05:43
PROVIDERS: ATTEND Surgery
DX: Z01.818 Encounter for other preprocedural examination (principal)

== ENCOUNTER 2020-11-02 07:37 | Day surgery (SDC) | payer OTHER ==
[~2020-11-02] VITALS: Ht 182.9 cm; Wt 119.1 kg
[2020-11-02] VITALS (9 sets, daily range): BP systolic 122–181; BP diastolic 72–99
[~2020-11-02 07:37] MED LIST changes: +SERT-414 PO
[2020-11-02] MEDS ORDERED: LACTATED RINGERS 1,000 ML IV PRN (07:45)
[2020-11-02] MEDS ORDERED: CLINDAMYCIN 600 MG/50 ML IVPB 50 ML IV ONE (07:45)
--- NOTE | 2020-11-02 07:55 | Progress Note-Pre Operative ---
Pre-Operative Progress Note H&P Reviewed The H&P was reviewed, patient examined and no changes noted. Date Seen by Provider: November 02, 2020 Time Seen by Provider: 07:54 Date H&P Reviewed: November 02, 2020 Time H&P Reviewed: 07:54 Pre-Operative Diagnosis: biliary dyskinesia MARTA YOO DO November 02, 2020 07:55
[2020-11-02] MEDS ORDERED: LACTATED RINGERS 1,000 ML IV ONE (08:05)
[2020-11-02] MEDS ORDERED: IOPAMIDOL 61% 30 ML (ISOVUE 300) VIAL ONE (08:05)
[2020-11-02] MEDS ORDERED: LIDOCAINE PF 2% 5 ML (XYLOCAINE) VIAL ONE (08:05)
[2020-11-02] MEDS ORDERED: ROCURONIUM 10 MG/ML 5 ML SYRINGE IV ONE (08:05)
[2020-11-02] MEDS ORDERED: ONDANSETRON 4 MG/2 ML (SDV) Z0FRAN ONE (08:05)
[2020-11-02] MEDS ORDERED: proPOfol 200 MG/20 ML (DIPRIVAN) VIAL IV ONE (08:05)
[2020-11-02] MEDS ORDERED: LIDOCAINE/EPI 1%-1:100,000 (XYLOCAINE) 20ML ONE (08:05)
[2020-11-02] MEDS ORDERED: MIDAZOLAM 2 MG/2 ML (VERSED) VIAL ONE (08:06)
[2020-11-02] MEDS ORDERED: fentaNYL INJ 100 MCG/2 ML AMP ONE (08:07)
[2020-11-02 08:17] LABS: HEMATOCRIT 51 % (40-54); HEMOGLOBIN 18.7 g/dL (13.3-17.7); MEAN CORPUSCULAR HEMOGLOBIN 32 pg (25-34); MEAN CORPUSCULAR HGB CONC 37 g/dL (32-36); MEAN CORPUSCULAR VOLUME 88 fL (80-99); PLATELET COUNT 167 10^3/uL (130-400); WHITE BLOOD COUNT 7.5 10^3/uL (4.3-11.0)
[2020-11-02] MEDS ORDERED: fentaNYL INJ 100 MCG/2 ML AMP IVP ONE (08:30)
[2020-11-02] MEDS ORDERED: ONDANSETRON 4 MG/2 ML (SDV) Z0FRAN IVP PRN (08:30)
[2020-11-02] MEDS ORDERED: MEPERIDINE (DEMEROL) INJ 50 MG/ML IVP ONE (08:30)
[2020-11-02] MEDS ORDERED: morphine INJ 10 MG/ML 1ML (SYR OR VIAL) IVP ONE (08:30)
[2020-11-02] MEDS ORDERED: morphine INJ 10 MG/ML 1ML (SYR OR VIAL) ONE (09:48)
[2020-11-02] MEDS ORDERED: SEVOFLURANE (ULTANE) 15 ML INHAL SOLN ONE (10:04)
[2020-11-02] MEDS ORDERED: ACHD5005 PO (10:14)
[2020-11-02] MEDS ORDERED: DOCU-143 PO (10:14)
--- NOTE | 2020-11-02 10:15 | Discharge Inst-Simple/Standard ---
Discharge Inst-Standard Discharge Medications New, Converted or Re-Newed RX: Transmitted to Pharmacy Patient Instructions/Follow Up Plan of Care/Instructions/FU: 2 weeks Katelin Activity as Tolerated: No Discharge Diet: Regular Diet Other Inst to Patient Follow up Appt: Make appointment for 2 weeks. Instructions: No lifting greater than 10 pounds. No strenuous activity. May shower in 24 hours, no tub bath or soaking. Use incentive spirometer at home as directed. No Smoking Skin/Wound Care: You have special glue over incision, it will fall off on it's own. Symptoms to Report: Appetite Changes, Extremity Discoloration, Numbness/Tingling, Swelling Increased, Bleeding Excessive, Eyesight Changes, Pain Increased, Urine Color Change, Constipation(Persistent), Fever over 101 degree F, Pain/Pressure in chest, Urinating Difficulty, Cough Up/Vomit Blood, Heart Beat Irreg/Pounding, Pain/Pressure in jaw, Vaginal Bleeding Increase, Cramps in feet or legs, Lightheadedness, Pain/Pressure in shoulder, Diarrhea(Persistent), Memory Changes Suddenly, Questions/Concerns, Weight gain consecutive days, Dizziness/Fainting, Nausea/Vomiting, Shortness of Breath, Weight gain over 2 pounds. If eyes or skin turn yellow notify physician. If questions or concerns contact your physician Or seek help at emergency department. MARTA YOO DO November 02, 2020 10:15
--- NOTE | 2020-11-02 10:17 | Progress Note-Post Operative ---
Post-Operative Progess Note Surgeon (s)/Case Sealer (s) Surgeon MARTA YOO DO Case Sealer: Dr. Kulkarni to assist in retraction dissection and closure. Pre-Operative Diagnosis Biliary dyskinesia Post-Operative Diagnosis same Procedure & Operative Findings Date of Procedure 11/02/20 Procedure Performed/Findings PROCEDURE: Laparoscopic cholecystectomy with intraoperative cholangiogram. COMPLICATIONS: None. PROCEDURE: The patient was taken to the operating suite and was prepped and draped in sterile fashion. A surgical pause was performed. Just superior to the umbilicus, a 12 mm incision was made. Dissection was taken down to the fascia, which was then scored and grasped with a Michelle and the abdomen was then entered. A 0 Vicryl suture was placed in a [id number] fashion and a Yee trocar was placed and secured. Pneumoperitoneum was achieved. A 5mm trochar place in the subxyphoid and 2 in the right upper quadrant. The gallbladder was then grasped and elevated. The cystic duct, and cystic artery were then dissected out. Clip was placed on the distal portion of the cystic duct which was then partially transected. An arrow catheter was inserted into the duct. The cholangiogram was then performed. No filing defects and contrast made its way into the duodenum. Catheter removed. Clips were placed on proximal portion of the cystic duct and then the duct was then transected. Clips were placed along the proximal and distal portion of the cystic artery which was then transected. Hook cautery was used to dissect the gallbladder from the gallbladder fossa achieving hemostasis. The gallbladder was placed in an Endobag and removed through the 12 mm trocar site. The abdomen was then reinspected. Copious amounts of irrigation were used to irrigate the abdomen and there were no signs of active bleeding. Hemostasis had been achieved. The 12 mm fascial defect was then closed with 0 Vicryl suture that had been placed in a [id number] fashion. The abdomen was then desufflated, the trocars were removed. The abdomen was then washed and dried. The skin was then closed using 4-0 Monocryl in a subcuticular fashion. The abdomen was washed and dried and Skin Affix was place over incisions. Patient tolerated the procedure well without any complications and was taken to the recovery room in stable condition. Anesthesia Type general Estimated Blood Loss Estimated blood loss (mL): minimal Specimens/Packing Specimens Removed gallbladder MARTA YOO DO November 02, 2020 10:17
[2020-11-02] MEDS ORDERED: inSUlin ASPART (NovoLOG) 1 UNIT/0.01 ML (CHARGE PER UNIT) ONE (10:34)
--- NOTE | 2020-11-02 12:02 | Anesthesia-General Post-Op ---
General Patient Condition Mental Status/LOC: Same as Preop Cardiovascular: Satisfactory Nausea/Vomiting: Absent Respiratory: Satisfactory Pain: Controlled Complications: Absent Post Op Complications Complications None Follow Up Care/Instructions Patient Instructions None needed. Anesthesia/Patient Condition Patient Condition Patient is doing well, no complaints, stable vital signs, no apparent adverse anesthesia problems. No complications reported per nursing. DEMETRIUS HUERTA CRNA November 02, 2020 12:02
[2020-11-02] MEDS ORDERED: metFORMIN 500 MG (GLUCOPHAGE) TAB PO STA (12:15)
--- NOTE | 2020-11-02 13:40 | Diagnostic Imaging Report ---
INDICATION: Fluoroscopy during intraoperative cholangiogram. FINDINGS: Fluoroscopy was provided in the OR during intraoperative cholangiogram. 7 seconds of fluoroscopic time was utilized. 28 images were obtained demonstrating contrast being injected via the cystic duct remnant. The intrahepatic and extrahepatic bile ducts are of normal caliber. There is no filling defect identified to suggest a retained stone. Contrast flows into the duodenum. IMPRESSION: Fluoroscopy during intraoperative cholangiogram. Dictated by: Dictated on workstation # [id number]
== END 2020-11-02 14:25 | disposition home or self-care (01) ==
LOC: SDC 07:37
PROVIDERS: ATTEND Surgery
DX: K81.1 Chronic cholecystitis (principal); K82.8 Other specified diseases of gallbladder; G40.909 Epilepsy, unspecified, not intractable, without status epilepticus; E11.9 Type 2 diabetes mellitus without complications; E66.9 Obesity, unspecified; Z90.89 Acquired absence of other organs; Z88.0 Allergy status to penicillin; Z88.1 Allergy status to other antibiotic agents; Z79.84 Long term (current) use of oral hypoglycemic drugs; Z82.49 Family history of ischemic heart disease and other diseases of the circulatory system
CPT/HCPCS: 36415; 76000; 82947; 85027; 87081

== ENCOUNTER 2021-03-23 10:33 | Emergency (ER) | payer OTHER ==
[~2021-03-23] VITALS: Ht 180 cm; Wt 119.0 kg
[~2021-03-23 10:33] MED LIST changes: +ACHD5005 PO; +DOCU-143 PO
[2021-03-23] MEDS ORDERED: NS IV 1000 ML 1,000 ML IV STA (10:51)
--- NOTE | 2021-03-23 10:58 | ED Chest Pain ---
General Chief Complaint: Chest Pain Stated Complaint: CHEST PAIN Nursing Triage Note: INTERMITTENT CHEST PAIN WITH ANXIETYSINCE YESTERDAY. NO OTHER SYMPTOMS ASSOCIATED WITH THE CHEST PAIN. 0/10 PAIN AT THE PRESENT. Source: patient, old records History of Present Illness Date Seen by Provider: Mar 23, 2021 Time Seen by Provider: 10:35 Initial Comments 26-year-old male presenting with intermittent chest pressure and anxiety since yesterday evening. He denies nausea or vomiting. He is not currently having pain. He states that this started with about a 5-minute episode of having a anxiety type attack. He has had those in the past but usually once it is done he does not continue to have symptoms. Since that episode last night when he was driving home from a regular visit with Dr. Marr in [place] he has had intermittent episodes of chest pressure that lasts a few seconds at a time. He denies having a cough or shortness of breath. He feels like the symptoms are worse when he sitting still. He has not had any symptoms when he is up walking and moving around and actually feels better at that time. He has a history of diabetes and some anxiety but denies any cardiac disease or hypertension. He takes Metformin for his diabetes and used to take sertraline for anxiety but is only taking Metformin currently. Timing/Duration: intermittent, 1 day Severity/Quality: moderate, pressure Location: substernal Radiation: no radiation Activities at Onset: other (driving home from Doctor visit in [place], [place]) Prior CP/Workup: non-cardiac (anxiety symptoms in past) ASA po EMPLOYMENT CASE MANAGER: No NTG SL EMPLOYMENT CASE MANAGER: No Associated Symptoms: No abdominal pain, No back pain, No diaphoresis, No dizzi ness, No edema, No fatigue, No fever/chills; headache (mild occipital); No heartburn, No nausea/vomiting; shortness of breath (when he had episode in the car last night); No swelling/lump in chest, No syncope, No weakness Allergies and Home Medications Allergies Coded Allergies: amoxicillin (Verified Allergy, Severe, ANAPHYLAXIS, 08/27/18) clavulanic acid (Verified Allergy, Severe, ANAPHYLAXIS, 08/27/18) Patient Home Medication List Home Medication List Reviewed: Yes Docusate Sodium (Colace) 100 Mg Capsule, 100 MG PO DAILY Prescribed by: MARTA YOO on 11/02/20 1014 Hydrocodone/Acetaminophen (Hydrocodone-Acetamin 5-325 mg) 1 Each Tablet, 1 EACH PO Q4H PRN for PAIN-MODERATE (5-7) Prescribed by: MARTA YOO on 11/02/20 1015 Hydroxyzine HCl (Hydroxyzine HCl) 25 Mg Tablet, 25 MG PO TID PRN for ANXIETY Prescribed by: IGGY MCRAE on 03/23/21 1223 Metformin HCl (Metformin HCl) 1,000 Mg Tablet, 1,000 MG PO DAILY, (Reported) Entered as Reported by: CYNTHIA KTAZ on 10/27/20 1218 Review of Systems Review of Systems Constitutional: No chills, No fever EENTM: No Symptoms Reported Respiratory: See HPI Cardiovascular: See HPI; Denies Edema Gastrointestinal: See HPI Genitourinary: No Symptoms Reported Musculoskeletal: no symptoms reported Skin: No rash Psychiatric/Neurological: See HPI, Anxiety, Headache (mild occipital headache since last night) Past Hulacvz-Rphrpo-Aszybz Hx Patient Social History Tobacco Use?: No Use of E-Cig and/or Vaping dev: No Substance use?: No Alcohol Use?: No Pt feels they are or have been: No Immunizations Up To Date First/Initial COVID19 Vaccinat: AUGUST 2020 Second COVID19 Vaccination Rene: JANUARY 2021 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: [employer] Seasonal Allergies Seasonal Allergies: Yes Past Medical History Surgeries: Yes Orthopedic, Tonsillectomy Respiratory: No Currently Using CPAP: No Currently Using BIPAP: No Cardiac: No Neurological: No Genitourinary: No Gastrointestinal: Yes Gall Bladder Disease Musculoskeletal: No Endocrine: Yes Diabetes, Non-Insulin dep HEENT: No Cancer: No Psychosocial: Yes Depression Integumentary: No Blood Disorders: No Physical Exam Vital Signs Vital Signs - First Documented 03/23/21 10:33 Temp 36.1 Pulse 79 Resp 18 B/P (MAP) 124/102 (109) Pulse Ox 98 O2 Delivery Room Air Capillary Refill : Less Than 3 Seconds Height, Weight, BMI Height: 6'0" Weight: 288lbs. oz. 130.798365gr; 36.00 BMI Method:Stated General Appearance: No Apparent Distress, WD/WN, Obese HEENT: PERRL/EOMI Neck: Full Range of Motion, Normal Inspection, Non Tender, Supple Respiratory: Chest Non Tender, Lungs Clear, Normal Breath Sounds, No Accessory Muscle Use, No Respiratory Distress Cardiovascular: Regular Rate, Rhythm, No JVD, No Murmur, Normal Peripheral Pulses Gastrointestinal: Normal Bowel Sounds, No Pulsatile Mass, Non Tender, Soft Rectal: Deferred Extremity: Normal Capillary Refill, Normal Inspection, Normal Range of Motion, No Calf Tenderness, No Pedal Edema Neurologic/Psychiatric: Alert, Oriented x3, 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 Norm as Tested Skin: Normal Color, Warm/Dry Progress/Results/Core Measures Results/Orders Lab Results Laboratory Tests Test 03/23/21 10:35 Range/Units White Blood Count 6.7 4.3-11.0 10^3/uL Red Blood Count 5.85 H 4.30-5.52 10^6/uL Hemoglobin 18.4 H 13.3-17.7 g/dL Hematocrit 51 40-54 % Mean Corpuscular Volume 87 80-99 fL Mean Corpuscular Hemoglobin 32 25-34 pg Mean Corpuscular Hemoglobin Concent 36 32-36 g/dL Red Cell Distribution Width 11.6 10.0-14.5 % Platelet Count 186 130-400 10^3/uL Mean Platelet Volume 9.9 9.0-12.2 fL Immature Granulocyte % (Auto) 0 % Neutrophils (%) (Auto) 53 42-75 % Lymphocytes (%) (Auto) 32 12-44 % Monocytes (%) (Auto) 9 0-12 % Eosinophils (%) (Auto) 6 0-10 % Basophils (%) (Auto) 1 0-10 % Neutrophils # (Auto) 3.5 1.8-7.8 X 10^3 Lymphocytes # (Auto) 2.2 1.0-4.0 X 10^3 Monocytes # (Auto) 0.6 0.0-1.0 X 10^3 Eosinophils # (Auto) 0.4 H 0.0-0.3 10^3/uL Basophils # (Auto) 0.0 0.0-0.1 10^3/uL Immature Granulocyte # (Auto) 0.0 0.0-0.1 10^3/uL Prothrombin Time 13.1 12.2-14.7 SEC INR Comment 1.0 0.8-1.4 Activated Partial Thromboplast Time 27 24-35 SEC D-Dimer 0.32 0.00-0.49 UG/ML Sodium Level 139 135-145 MMOL/L Potassium Level 4.2 3.6-5.0 MMOL/L Chloride Level 100 98-107 MMOL/L Carbon Dioxide Level 29 21-32 MMOL/L Anion Gap 10 5-14 MMOL/L Blood Urea Nitrogen 10 7-18 MG/DL Creatinine 0.97 0.60-1.30 MG/DL Estimat Glomerular Filtration Rate 92 BUN/Creatinine Ratio 10 Glucose Level 185 H 70-105 MG/DL Calcium Level 9.6 8.5-10.1 MG/DL Corrected Calcium 8.5-10.1 MG/DL Magnesium Level 2.0 1.6-2.4 MG/DL Total Bilirubin 1.2 H 0.1-1.0 MG/DL Aspartate Amino Transf (AST/SGOT) 33 5-34 U/L Alanine Aminotransferase (ALT/SGPT) 53 0-55 U/L Alkaline Phosphatase 83 40-136 U/L Troponin I < 0.30 <0.30 NG/ML Pro-B-Type Natriuretic Peptide < 5.0 <75.0 PG/ML Total Protein 7.6 6.4-8.2 GM/DL Albumin 4.8 H 3.2-4.5 GM/DL Lipase 22 8-78 U/L My Orders Orders - IGGY MCRAE MD Cbc With Automated Diff (03/23/21 10:37) Magnesium (03/23/21 10:37) Ekg Tracing (03/23/21 10:37) Comprehensive Metabolic Panel (03/23/21 10:37) Protime With Inr (03/23/21 10:37) Partial Thromboplastin Time (03/23/21 10:37) O2 (03/23/21 10:37) Monitor-Rhythm Ecg Trace Only (03/23/21 10:37) Ed Iv/Invasive Line Start (03/23/21 10:37) Lipase (03/23/21 10:37) Troponin I Fs (03/23/21 10:37) Probnp Fs (03/23/21 10:37) Ns Iv 1000 Ml (Sodium Chloride 0.9%) (03/23/21 10:51) Chest Pa/Lat (2 View) (03/23/21 10:51) Fibrin Degradation Products (03/23/21 10:51) Vital Signs/I&O 03/23/21 03/23/21 10:33 12:22 Temp 36.1 36.0 Pulse 79 72 Resp 18 18 B/P (MAP) 124/102 (109) 142/96 Pulse Ox 98 99 O2 Delivery Room Air Room Air Blood Pressure Mean: 109 Progress Progress Note #1: Progress Note Obtain electrocardiogram as well as chest x-ray and labs. Since patient reports this feels similar to anxiety attack but it is lasting longer than usual. Certainly could be related back to anxiety. With being overweight and diabetic it could be cardiac related but with him waiting over 16 hours to present to ED he should have elevation of Troponin by now. will give some IVF for hydration as his HR did increase with changing position in the bed Progress Note #2: Progress Note Chest x-ray is clear without acute process. His electrocardiogram does not show any ST elevation or ischemic changes. His labs do not show acute significant abnormality on his CBC. His chemistry had a mild elevation of his bilirubin to 1.2. He has had his gallbladder removed previously. He has a negative troponin is less than 0.3 and does not have any elevation of his proBNP. His coag tests are also negative, including Ddimer. Will reassure the patient and could try a short course of some Xanax and have him check back with Dr. Marr for continued concerns. There may be a GI component for reflux or esophagitis as well. Will have him try Hydroxyzine for anxiety and check with pcp Initial ECG Impression Date: Mar 23, 2021 Initial ECG Impression Time: 10:35 Initial ECG Rate: 76 Initial ECG Rhythm: Normal Sinus Initial ECG Comparisson: No Previous ECG Available Comment Normal sinus rhythm with a heart rate of 76 bpm. UT interval 153 ms. QT interval 378 ms with a QTc interval of 426 ms. There is no acute ST elevation. There is no prior tracing available for comparison. Diagnostic Imaging Diagonstic Imaging: Xray Plain Films/CT/US/NM/MRI: chest Comments NAME: KODY ZACARIAS MED REC#: [id number] PT STATUS: REG ER : 1995 PHYSICIAN: IGGY MCRAE MD ADMIT DATE: 03/23/21/ER FS Draft Date of Exam:03/23/21 CHEST PA/LAT (2 VIEW) INDICATION: Intermittent chest pressure since last night. TECHNIQUE: Two view chest 11:01 AM CORRELATION STUDY: None FINDINGS: The heart size, mediastinal configuration and pulmonary vasculature are within normal limits. The lungs are clear with no consolidating infiltrate. There is no significant pleural effusion or pneumothorax. Mild accentuated thoracic kyphosis and degenerative change. IMPRESSION: 1. Negative for acute abnormality of the chest. Dictated on workstation # [id number] Dict: 03/23/21 1103 Trans: 03/23/21 1104 DO [id number] Interpreted by: WINNIE GONZALEZ DO Electronically signed by: Reviewed: Reviewed by Me Departure Impression Primary Impression: Chest discomfort Disposition: HOME, SELF-CARE Condition: Stable Departure-Patient Inst. Decision time for Depature: 12:23 Referrals: DASH MARR MD (PCP/Family) Primary Care Physician Patient Instructions: Anxiety, Adult ED, Chest Pain, Adult ED Add. Discharge Instructions: All of your heart tests look good today and no indication of heart attack or heart damage. You may be having anxiety, reflux, gastritis, lung irritation, esophagus irritation or other non-cardiac source for your symptoms. You may try the Hydroxyzine for anxiety and symptoms over the weekend and check back with Dr. Marr if continued problems/concerns Friday. All discharge instructions reviewed with patient and/or family. Voiced understanding. Scripts Hydroxyzine HCl (Hydroxyzine HCl) 25 Mg Tablet 25 MG PO TID PRN for ANXIETY for 5 Days, #15 TAB 0 Refills Prov: IGGY MCRAE MD 03/23/21 Work/School Note: Work Release Form Date Seen in the Emergency Department: Mar 23, 2021 Return to Work: Mar 24, 2021 Restrictions: No Restrictions IGGY MCRAE MD Mar 23, 2021 10:58
[2021-03-23 11:00] LABS: HEMATOCRIT 51 % (40-54); HEMOGLOBIN 18.4 g/dL (13.3-17.7); MEAN CORPUSCULAR HEMOGLOBIN 32 pg (25-34); MEAN CORPUSCULAR HGB CONC 36 g/dL (32-36); MEAN CORPUSCULAR VOLUME 87 fL (80-99); WHITE BLOOD COUNT 6.7 10^3/uL (4.3-11.0)
[2021-03-23 11:01] LABS: BASOPHILS % (AUTO) 1 % (0-10); EOSINOPHILS # (AUTO) 0.4 10^3/uL (0.0-0.3); EOSINOPHILS % (AUTO) 6 % (0-10); LYMPHOCYTES # (AUTO) 2.2 X 10^3 (1.0-4.0); LYMPHOCYTES % (AUTO) 32 % (12-44); MEAN PLATELET VOLUME 9.9 fL (9.0-12.2); MONOCYTES # (AUTO) 0.6 X 10^3 (0.0-1.0); MONOCYTES % (AUTO) 9 % (0-12); NEUTROPHILS # (AUTO) 3.5 X 10^3 (1.8-7.8); NEUTROPHILS % (AUTO) 53 % (42-75); PLATELET COUNT 186 10^3/uL (130-400)
--- NOTE | 2021-03-23 11:04 | Diagnostic Imaging Report ---
INDICATION: Intermittent chest pressure since last night. TECHNIQUE: Two view chest 11:01 AM CORRELATION STUDY: None FINDINGS: The heart size, mediastinal configuration and pulmonary vasculature are within normal limits. The lungs are clear with no consolidating infiltrate. There is no significant pleural effusion or pneumothorax. Mild accentuated thoracic kyphosis and degenerative change. IMPRESSION: 1. Negative for acute abnormality of the chest. Dictated by: Dictated on workstation # [id number]
[2021-03-23 11:20] LABS: PROTHROMBIN TIME PATIENT 13.1 SEC (12.2-14.7)
[2021-03-23 11:22] LABS: CARBON DIOXIDE 29 MMOL/L (21-32); CHLORIDE 100 MMOL/L (98-107); POTASSIUM 4.2 MMOL/L (3.6-5.0); SODIUM 139 MMOL/L (135-145)
[2021-03-23 11:23] LABS: ALANINE AMINOTRANSFERASE 53 U/L (0-55); ALBUMIN 4.8 GM/DL (3.2-4.5); ALKALINE PHOSPHATASE 83 U/L (40-136); BILIRUBIN,TOTAL 1.2 MG/DL (0.1-1.0); BUN/CREATININE RATIO 10; CALCIUM 9.6 MG/DL (8.5-10.1); CREATININE SERUM 0.97 MG/DL (0.60-1.30); GFR ESTIMATED 92; GLUCOSE 185 MG/DL (70-105); LIPASE 22 U/L (8-78); TOTAL PROTEIN 7.6 GM/DL (6.4-8.2)
[2021-03-23 12:22] VITALS: BP 142/96
[2021-03-23] MEDS ORDERED: HYDR-700 PO (12:23)
== END 2021-03-23 12:27 | disposition home or self-care (01) ==
LOC: EDUNIT# 10:33 → ER FS 10:34
DX: R07.89 Other chest pain (principal); E11.9 Type 2 diabetes mellitus without complications; E66.9 Obesity, unspecified; F41.9 Anxiety disorder, unspecified; Z68.36 Body mass index [BMI] 36.0-36.9, adult; Z79.84 Long term (current) use of oral hypoglycemic drugs; Z79.899 Other long term (current) drug therapy
CPT/HCPCS: 36415; 71046; 80053; 83690; 83735; 83880; 84484; 85025; 85379; 85610; 85730; 93005; 93041

== ENCOUNTER 2021-08-16 05:32 | Outpatient (CLI) | payer BC ==
[~2021-08-16] VITALS: Ht 180.3 cm; Wt 120.5 kg
[~2021-08-16 05:32] MED LIST changes: +HYDR-700 PO
[2021-08-16] MEDS ORDERED: ESOM20CA58 PO (11:50)
== END 2021-08-16 11:53 ==
LOC: PREOP 05:32
PROVIDERS: ATTEND Surgery
DX: Z01.818 Encounter for other preprocedural examination (principal)

== ENCOUNTER 2021-08-18 02:54 | Emergency (ER) | payer BC ==
[~2021-08-18 02:54] MED LIST changes: +ESOM20CA58 PO
[2021-08-18 03:05] VITALS: BP 126/74
[2021-08-18] MEDS ORDERED: LACTATED RINGERS 1,000 ML IV ONE (03:15)
[2021-08-18] MEDS ORDERED: ONDANSETRON 4 MG/2 ML (SDV) Z0FRAN IVP ONE (03:15)
--- NOTE | 2021-08-18 03:16 | ED GI ---
General Chief Complaint: Substance Abuse Stated Complaint: ETOH,AMS,VOMITING Source of Information: Patient Exam Limitations: No Limitations History of Present Illness Date Seen by Provider: Aug 18, 2021 Time Seen by Provider: 03:00 Initial Comments Patient to the ER by private conveyance with his and chief complaint that he was out at a democr[employer] with friends, drank too much raspberry liqueur, apple whiskey and other various drinks and now does not feel well. His was concerned because he was slurring his speech sleepy and making confused statements. No fevers chills diarrhea constipation. He has had nausea and vomiting of the food that he ate. No bilious or bloody vomit. No trauma falls or fights according to . He states he rarely drinks and never drinks to this extent. Allergies and Home Medications Allergies Coded Allergies: amoxicillin (Verified Allergy, Severe, ANAPHYLAXIS, 08/27/18) clavulanic acid (Verified Allergy, Severe, ANAPHYLAXIS, 08/27/18) Patient Home Medication List Home Medication List Reviewed: Yes Esomeprazole Magnesium (Nexium 24Hr) 20 Mg Capsule.dr, 20 MG PO UD, (Reported) Entered as Reported by: MANJINDER MARR on 08/16/21 1150 Hydroxyzine HCl (Hydroxyzine HCl) 25 Mg Tablet, 25 MG PO TID PRN for ANXIETY Prescribed by: IGGY MCRAE on 03/23/21 1223 Metformin HCl (Metformin HCl) 1,000 Mg Tablet, 1,000 MG PO BID, (Reported) Entered as Reported by: CYNTHIA KATZ on 10/27/20 1218 Discontinued Medications Docusate Sodium (Colace) 100 Mg Capsule, 100 MG PO DAILY Discontinued Reason: No Longer Taking Prescribed by: MARTA YOO on 11/02/20 1014 Hydrocodone/Acetaminophen (Hydrocodone-Acetamin 5-325 mg) 1 Each Tablet, 1 EACH PO Q4H PRN for PAIN-MODERATE (5-7) Discontinued Reason: No Longer Taking Prescribed by: MARTA YOO on 11/02/20 1015 Review of Systems Review of Systems Constitutional: No chills, No diaphoresis EENTM: No Blurred Vision, No Double Vision Respiratory: Denies Cough, Denies Shortness of Air Cardiovascular: Denies Chest Pain, Denies Lightheadedness Gastrointestinal: Denies Constipated, Denies Diarrhea; Nausea, Vomiting Genitourinary: Denies Burning, Denies Discharge Musculoskeletal: No back pain, No joint pain All Other Systems Reviewed Negative Unless Noted: Yes Past Sbjetnh-Ijrvjk-Wguyca Hx Patient Social History Tobacco Use?: No Use of E-Cig and/or Vaping dev: No Substance use?: No Alcohol Use?: No Immunizations Up To Date First/Initial COVID19 Vaccinat: AUGUST 2020 Second COVID19 Vaccination Rnee: JANUARY 2021 Seasonal Allergies Seasonal Allergies: Yes Past Medical History Surgeries: Yes (RIGHT KNEE SCOPE) Gallbladder, Orthopedic, Tonsillectomy Respiratory: No Currently Using CPAP: No Currently Using BIPAP: No Cardiac: No Neurological: No Genitourinary: No Gastrointestinal: Yes (INCISIONAL HERNIA) Gall Bladder Disease Musculoskeletal: No Endocrine: Yes Diabetes, Non-Insulin dep HEENT: No Cancer: No Psychosocial: Yes Depression Integumentary: No Blood Disorders: No Physical Exam Vital Signs Vital Signs - First Documented 08/18/21 03:05 Temp 36.7 Pulse 91 Resp 18 B/P (MAP) 126/74 (91) Pulse Ox 97 O2 Delivery Room Air Capillary Refill : Height/Weight/BMI Height: 6'0" Weight: 288lbs. oz. 130.150315ju; 37.06 BMI Method:Stated General Appearance: WD/WN, mild distress HEENT: PERRL/EOMI, pharynx normal Neck: full range of motion, normal inspection Respiratory: no respiratory distress, no accessory muscle use Cardiovascular: normal peripheral pulses, regular rate, rhythm Peripheral Pulses: 2+ Radial Pulses (R), 2+ Radial Pulses (L) Gastrointestinal: normal bowel sounds, non tender, soft Extremities: normal range of motion, non-tender, normal capillary refill Neurologic/Psychiatric: alert, normal mood/affect, oriented x 3 Progress/Results/Core Measures Results/Orders Lab Results Laboratory Tests Test 08/18/21 03:25 Range/Units White Blood Count 7.6 4.3-11.0 10^3/uL Red Blood Count 5.77 H 4.30-5.52 10^6/uL Hemoglobin 18.3 H 13.3-17.7 g/dL Hematocrit 52 40-54 % Mean Corpuscular Volume 90 80-99 fL Mean Corpuscular Hemoglobin 32 25-34 pg Mean Corpuscular Hemoglobin Concent 35 32-36 g/dL Red Cell Distribution Width 11.6 10.0-14.5 % Platelet Count 185 130-400 10^3/uL Mean Platelet Volume 9.8 9.0-12.2 fL Immature Granulocyte % (Auto) 0 % Neutrophils (%) (Auto) 57 42-75 % Lymphocytes (%) (Auto) 27 12-44 % Monocytes (%) (Auto) 7 0-12 % Eosinophils (%) (Auto) 8 0-10 % Basophils (%) (Auto) 1 0-10 % Neutrophils # (Auto) 4.3 1.8-7.8 10^3/uL Lymphocytes # (Auto) 2.0 1.0-4.0 10^3/uL Monocytes # (Auto) 0.6 0.0-1.0 10^3/uL Eosinophils # (Auto) 0.6 H 0.0-0.3 10^3/uL Basophils # (Auto) 0.1 0.0-0.1 10^3/uL Immature Granulocyte # (Auto) 0.0 0.0-0.1 10^3/uL Sodium Level 139 135-145 MMOL/L Potassium Level 4.8 3.6-5.0 MMOL/L Chloride Level 103 98-107 MMOL/L Carbon Dioxide Level 23 21-32 MMOL/L Anion Gap 13 5-14 MMOL/L Blood Urea Nitrogen 11 7-18 MG/DL Creatinine 1.07 0.60-1.30 MG/DL Estimat Glomerular Filtration Rate 97 BUN/Creatinine Ratio 10 Glucose Level 281 H 70-105 MG/DL Calcium Level 9.7 8.5-10.1 MG/DL Corrected Calcium 8.5-10.1 MG/DL Magnesium Level 2.2 1.6-2.4 MG/DL Total Bilirubin 0.7 0.1-1.0 MG/DL Aspartate Amino Transf (AST/SGOT) 28 5-34 U/L Alanine Aminotransferase (ALT/SGPT) 55 0-55 U/L Alkaline Phosphatase 70 40-136 U/L Total Protein 8.1 6.4-8.2 GM/DL Albumin 4.8 H 3.2-4.5 GM/DL Serum Alcohol 128 H <10 MG/DL My Orders Orders - TAMARA CAMPOS Ed Iv/Invasive Line Start (08/18/21 03:11) Lactated Ringers (Lr 1000 Ml Iv Solution (08/18/21 03:15) Ondansetron Injection (Zofran Injectio (08/18/21 03:15) Cbc With Automated Diff (08/18/21 03:11) Comprehensive Metabolic Panel (08/18/21 03:11) Magnesium (08/18/21 03:11) Alcohol (08/18/21 03:12) Medications Given in ED Current Medications Medications Dose Ordered Sig/Emily Route Start Time Stop Time Status Last Admin Dose Admin Lactated Ringer's 1,000 ml @ 0 mls/hr Q0M ONCE IV 08/18/21 03:15 08/18/21 03:16 DC 08/18/21 03:30 1,000 MLS/HR Ondansetron HCl 8 mg ONCE ONCE IVP 08/18/21 03:15 08/18/21 03:16 DC 08/18/21 03:30 8 MG Vital Signs/I&O 08/18/21 03:05 Temp 36.7 Pulse 91 Resp 18 B/P (MAP) 126/74 (91) Pulse Ox 97 O2 Delivery Room Air Progress Progress Note : Time: 03:15 Progress Note Patient appears to be drunk. Is oriented x4. He is not slurring his speech. Zofran and fluids and check some basic labs electrolytes. No history of trauma. Departure Impression Primary Impression: Acute alcoholic intoxication Qualified Codes: F10.920 - Alcohol use, unspecified with intoxication, uncomplicated Disposition: 01 HOME, SELF-CARE Condition: Stable Departure-Patient Inst. Decision time for Depature: 04:01 Referrals: DASH MARR MD (PCP/Family) Primary Care Physician Patient Instructions: Alcohol Use - When Is Drinking a Problem? Add. Discharge Instructions: Drink plenty of fluids. Tylenol 1000 mg every 8 hours necessary for headache. Ibuprofen 800 mg every 8 hours necessary for headache. Tums, Maalox, Mylanta, Rolaids etc. as necessary for stomachache. All discharge instructions reviewed with patient and/or family. Voiced understanding. TAMARA CAMPOS Aug 18, 2021 03:16
[2021-08-18 03:45] LABS: BASOPHILS # (AUTO) 0.1 10^3/uL (0.0-0.1); BASOPHILS % (AUTO) 1 % (0-10); EOSINOPHILS # (AUTO) 0.6 10^3/uL (0.0-0.3); EOSINOPHILS % (AUTO) 8 % (0-10); HEMATOCRIT 52 % (40-54); HEMOGLOBIN 18.3 g/dL (13.3-17.7); LYMPHOCYTES % (AUTO) 27 % (12-44); MEAN CORPUSCULAR HEMOGLOBIN 32 pg (25-34); MEAN CORPUSCULAR HGB CONC 35 g/dL (32-36); MEAN CORPUSCULAR VOLUME 90 fL (80-99); MEAN PLATELET VOLUME 9.8 fL (9.0-12.2); MONOCYTES # (AUTO) 0.6 10^3/uL (0.0-1.0); MONOCYTES % (AUTO) 7 % (0-12); NEUTROPHILS # (AUTO) 4.3 10^3/uL (1.8-7.8); NEUTROPHILS % (AUTO) 57 % (42-75); PLATELET COUNT 185 10^3/uL (130-400); WHITE BLOOD COUNT 7.6 10^3/uL (4.3-11.0)
[2021-08-18 03:48] LABS: ALBUMIN 4.8 GM/DL (3.2-4.5)
[2021-08-18 03:49] LABS: CHLORIDE 103 MMOL/L (98-107); POTASSIUM 4.8 MMOL/L (3.6-5.0); SODIUM 139 MMOL/L (135-145)
[2021-08-18 03:50] LABS: CALCIUM 9.7 MG/DL (8.5-10.1)
[2021-08-18 03:51] LABS: GLUCOSE 281 MG/DL (70-105); TOTAL PROTEIN 8.1 GM/DL (6.4-8.2)
[2021-08-18 03:52] LABS: CARBON DIOXIDE 23 MMOL/L (21-32)
[2021-08-18 03:53] LABS: BILIRUBIN,TOTAL 0.7 MG/DL (0.1-1.0)
[2021-08-18 03:54] LABS: ALKALINE PHOSPHATASE 70 U/L (40-136)
[2021-08-18 03:55] LABS: CREATININE SERUM 1.07 MG/DL (0.60-1.30); GFR ESTIMATED 97
[2021-08-18 03:56] LABS: BUN/CREATININE RATIO 10
[2021-08-18 03:57] LABS: ALANINE AMINOTRANSFERASE 55 U/L (0-55)
[2021-08-18 03:58] LABS: MAGNESIUM 2.2 MG/DL (1.6-2.4)
== END 2021-08-18 04:26 | disposition home or self-care (01) ==
LOC: EDUNIT# 02:54 → ER 02:57
DX: F10.129 Alcohol abuse with intoxication, unspecified (principal); Y90.6 Blood alcohol level of 120-199 mg/100 ml
CPT/HCPCS: 80053; 83735; 85025; 99284; G0480; 36415; 80320

== ENCOUNTER 2021-08-23 07:03 | Day surgery (SDC) | payer BC, OTHER ==
[~2021-08-23] VITALS: Ht 180.3 cm; Wt 120.5 kg
[2021-08-23] VITALS (10 sets, daily range): BP systolic 104–137; BP diastolic 74–92
[2021-08-23] MEDS ORDERED: LIDOCAINE/EPI 1%-1:200,000 (XYLOCAINE) 30 ML VIAL ONE (07:06)
[2021-08-23] MEDS ORDERED: CLINDAMYCIN 600 MG/50 ML IVPB 50 ML IV ONE (07:15)
[2021-08-23] MEDS: LACTATED RINGERS 1,000 ML IV PRN ×3 (07:27→10:19)
[2021-08-23] MEDS ORDERED: MIDAZOLAM 2 MG/2 ML (VERSED) VIAL ONE (07:46)
[2021-08-23] MEDS ORDERED: fentaNYL INJ 100 MCG/2 ML AMP ONE (07:47)
--- NOTE | 2021-08-23 08:05 | Progress Note-Pre Operative ---
Pre-Operative Progress Note H&P Reviewed The H&P was reviewed, patient examined and no changes noted. Date Seen by Provider: Aug 23, 2021 Time Seen by Provider: 07:54 Date H&P Reviewed: Aug 23, 2021 Time H&P Reviewed: 07:54 Pre-Operative Diagnosis: left inguinal hernia MARTA YOO DO Aug 23, 2021 08:05
[2021-08-23] MEDS ORDERED: LIDOCAINE PF 2% 5 ML (XYLOCAINE) VIAL ONE (10:06)
[2021-08-23] MEDS ORDERED: proPOfol 200 MG/20 ML (DIPRIVAN) VIAL IV ONE (10:06)
[2021-08-23] MEDS ORDERED: ONDANSETRON 4 MG/2 ML (SDV) Z0FRAN ONE (10:06)
[2021-08-23] MEDS ORDERED: ROCURONIUM 10 MG/ML 5 ML SYRINGE IV ONE (10:06)
[2021-08-23] MEDS ORDERED: GLYCOPYRROLATE 0.2 MG/ML (ROBINUL) 2 ML VIAL ONE (10:59)
[2021-08-23] MEDS ORDERED: NEOSTIGMINE 3 MG/3 ML VIAL ONE (10:59)
[2021-08-23] MEDS ORDERED: SEVOFLURANE (ULTANE) 15 ML INHAL SOLN ONE (10:59)
[2021-08-23] MEDS ORDERED: morphine INJ 10 MG/ML 1ML (SYR OR VIAL) ONE (11:08)
[2021-08-23] MEDS ORDERED: HYDROmorphone 2 MG/ML VIAL (DILAUDID) ONE (11:09)
[2021-08-23] MEDS ORDERED: KETOROLAC 30 MG/ML VIAL ONE (11:09)
[2021-08-23] MEDS ORDERED: ACHD5005 PO (11:12)
[2021-08-23] MEDS ORDERED: DOCU-143 PO (11:12)
--- NOTE | 2021-08-23 11:14 | Discharge Inst-Simple/Standard ---
Discharge Inst-Standard Discharge Medications New, Converted or Re-Newed RX: Transmitted to Pharmacy Patient Instructions/Follow Up Plan of Care/Instructions/FU: 2 weeks Katelin Activity as Tolerated: No Discharge Diet: Regular Diet Other Inst to Patient Follow up Appt: Make appointment for 2 week. Instructions: No lifting greater than 10 pounds. No strenuous activity. May shower in 24 hours, no tub bath or soaking. Use incentive spirometer at home as directed. No Smoking Skin/Wound Care: You have special glue over your incision that will fall off on it's own. Symptoms to Report: Appetite Changes, Extremity Discoloration, Numbness/Tingling, Swelling Increased, Bleeding Excessive, Eyesight Changes, Pain Increased, Urine Color Change, Constipation(Persistent), Fever over 101 degree F, Pain/Pressure in chest, Urinating Difficulty, Cough Up/Vomit Blood, Heart Beat Irreg/Pounding, Pain/Pressure in jaw, Vaginal Bleeding Increase, Cramps in feet or legs, Lightheadedness, Pain/Pressure in shoulder, Diarrhea(Persistent), Memory Changes Suddenly, Questions/Concerns, Weight gain consecutive days, Dizziness/Fainting, Nausea/Vomiting, Shortness of Breath, Weight gain over 2 pounds If questions or concerns contact your physician Or seek help at emergency department. MARTA YOO DO Aug 23, 2021 11:14
--- NOTE | 2021-08-23 11:15 | Progress Note-Post Operative ---
Post-Operative Progess Note Surgeon (s)/Senior Sas Programmer (s) Surgeon MARTA YOO DO Senior Sas Programmer: Dr. Kulkarni Pre-Operative Diagnosis left inguinal hernia Post-Operative Diagnosis same Procedure & Operative Findings Date of Procedure 08/23/21 Procedure Performed/Findings robotic left inguinal hernia repair Anesthesia Type general Estimated Blood Loss Estimated blood loss (mL): minimal Specimens/Packing Specimens Removed na MRATA YOO DO Aug 23, 2021 11:15
[2021-08-23] MEDS ORDERED: ONDANSETRON 4 MG/2 ML (SDV) Z0FRAN IVP PRN (11:30)
[2021-08-23] MEDS ORDERED: KETOROLAC 30 MG/ML VIAL IVP ONE (11:30)
[2021-08-23] MEDS ORDERED: HYDROmorphone 2 MG/ML VIAL (DILAUDID) IV ONE (11:30)
[2021-08-23] MEDS ORDERED: morphine INJ 10 MG/ML 1ML (SYR OR VIAL) IVP ONE (11:30)
--- NOTE | 2021-08-23 13:13 | Anesthesia-General Post-Op ---
General Patient Condition Mental Status/LOC: Same as Preop Cardiovascular: Satisfactory Nausea/Vomiting: Absent Respiratory: Satisfactory Pain: Controlled Complications: Absent Post Op Complications Complications None Follow Up Care/Instructions Patient Instructions None needed. Anesthesia/Patient Condition Patient Condition Patient is doing well, no complaints, stable vital signs, no apparent adverse anesthesia problems. No complications reported per nursing. ALENA PEREZ CRNA Aug 23, 2021 13:13
--- NOTE | 2021-08-23 21:12 | OPERATIVE REPORT ---
DATE OF SERVICE: 08/23/2021 PREOPERATIVE DIAGNOSIS: Left inguinal hernia. POSTOPERATIVE DIAGNOSIS: Left inguinal hernia. PROCEDURE: Robotic left inguinal hernia repair. SURGEON: Marta Thomason DO RUBBER STAMP MAKER: Dr. Kulkarni, assisted in retraction, dissection and closure and identification of anatomy. ANESTHESIA: General. ESTIMATED BLOOD LOSS: Minimal. COMPLICATIONS: None. INDICATIONS: The patient is a 26-year-old male with left inguinal hernia. He understands risks and benefits of procedure and wishes to proceed. Consent was signed in the chart. DESCRIPTION OF PROCEDURE: The patient was taken to the operating suite, was prepped and draped in sterile fashion. Surgical pause was performed. Local anesthetic was infiltrated just above the umbilicus. An 11-blade scalpel was used to make a small skin incision, blunt dissection down to the fascia, which was then scored with cautery and the fascia was then grasped, elevated and the abdomen was entered. An 0 Vicryl was placed in a [id number] fashion for closure at the end of the case. Balloon trocar was inserted, and pneumoperitoneum was achieved. Under direct visualization of laparoscope, two 8 mm trocars were then placed, one in the right side of the abdomen and one on the left side of the abdomen. The patient was placed in Trendelenburg position approximately 15 degrees. The robot was then docked. The abdomen was inspected. No defect on the right side of the abdomen. The patient has a small left inguinal hernia. The peritoneum was then dissected down creating a flap down, mobilizing all the way down to the pubic symphysis medially. A pocket was then developed on the left, which the hernia sac was then dissected off of the cord, which was very small . Dissection was also taken out laterally which was approximately 2 cm below the pubic symphysis. No direct defect visualized. Once the flap had been completely taken down, a 10 x 15 cm mesh was then inserted. A 3-0 Vicryl was used to secure it to the pubic symphysis. A suture was also placed laterally on the top portion securing it as well. The peritoneal flap was then closed using a 2-0 V-Loc suture in a running fashion. The robot was then undocked. The trocars were removed. The 0 Vicryl that was placed at the beginning of the case for closure of 12 mm trocar site was then tied. The skin was then closed using 4-0 Monocryl after the ports were removed and the abdomen was washed and dried and Skin Affix was placed over the incisions. The patient tolerated procedure well without any complications, taken to recovery room in stable condition. CC: Dr. Edson Salguero - requested, unable to deliver. Job ID: [id number] DocumentID: [id number] Dictated Date: 08/23/2021 16:11:21 Swatch Folder Date: 08/23/2021 21:10:47 Dictated By: MARTA THOMASON DO
== END 2021-08-23 13:05 | disposition home or self-care (01) ==
LOC: SDC 07:03
PROVIDERS: ATTEND Surgery
DX: K40.90 Unilateral inguinal hernia, without obstruction or gangrene, not specified as recurrent (principal); E66.9 Obesity, unspecified; Z68.37 Body mass index [BMI] 37.0-37.9, adult; Z90.49 Acquired absence of other specified parts of digestive tract
CPT/HCPCS: 49650; 82947; 87081; C1781

== ENCOUNTER 2021-11-01 19:56 | Emergency (ER) | payer BC ==
[~2021-11-01] VITALS: Ht 182.8 cm; Wt 118.3 kg
--- NOTE | 2021-11-01 20:23 | ED Respiratory ---
General Chief Complaint: Respiratory Problems Stated Complaint: SOB, SHOLDER AND NECK PAIN Nursing Triage Note: PT ARRIVAL TO ER WITH COMPLAINT OF SOA, PAIN IN UPPER BACK/SHOULDER BLADES X2 HOURS. PT STATES THAT THEY WERE GETTING INTO CAR TO GO TO DINNER HERE IN [place] AND FELT A LITTLE SHORT OF BREATH AND SOME PAIN. PT STATES THAT THEY WENT AHEAD AND WENT TO DINNER, AND PAIN WORSENED. PT STATES THAT THE PAIN IS A PRESSURE LIKE PAIN. PT DENIES CHEST PAIN, AND DENIES EVER HAVING ANYTHING LIKE THIS BEFORE. Source: patient Exam Limitations: no limitations History of Present Illness Date Seen by Provider: November 01, 2021 Time Seen by Provider: 20:05 Initial Comments Patient is a 26-year-old male who presents to the emergency department today with a chief complaint of feeling short of breath, pain in his upper back, between his shoulder blades, a little lightheaded and dizzy. He states onset of symptoms approximately 530 just prior to eating dinner. He has never had pain like this before. Pain is worse with taking a deep breath and rates it at that point at about a "5". He has a history of diabetes on medication. No history of hypertension. No history of blood clot. No recent prolonged immobility/car trips. He did have hernia repair approximately 2 months ago and states he was laid up for about 2 weeks. On physical examination he has a little right lower extremity calf pain with apparent positive Homans' sign on the right. Distal n eurovascularly intact to the extremity. No swelling noted to that leg. Patient has not taken anything for the pain. He still feels short of breath. Heart rate is in the upper 90s. Oxygen saturations 99%. Blood pressure is good. He states he has felt a little congested over the last couple of hours. No cough or hemoptysis. No family history of early coronary artery disease or blood clots that he is aware of. All other review of systems reviewed and negative except as stated. Timing/Duration: this evening Severity: moderate Prior Episodes/Possible Cause: no prior episodes Associated Symptoms: nasal congestion, shortness of breath Allergies and Home Medications Allergies Coded Allergies: amoxicillin (Verified Allergy, Severe, ANAPHYLAXIS, 08/27/18) clavulanic acid (Verified Allergy, Severe, ANAPHYLAXIS, 08/27/18) Patient Home Medication List Home Medication List Reviewed: Yes Docusate Sodium (Colace) 100 Mg Capsule, 100 MG PO BID Prescribed by: MARTA YOO on 08/23/21 1112 Esomeprazole Magnesium (Nexium 24Hr) 20 Mg Capsule.dr, 20 MG PO UD, (Reported) Entered as Reported by: MANJINDER MARR on 08/16/21 1150 Hydrocodone/Acetaminophen (Hydrocodone-Acetamin 5-325 mg) 1 Each Tablet, 1 EACH PO Q4H PRN for PAIN-MODERATE (5-7) Prescribed by: MARTA YOO on 08/23/21 1113 Hydroxyzine HCl (Hydroxyzine HCl) 25 Mg Tablet, 25 MG PO TID PRN for ANXIETY Prescribed by: IGGY MCRAE on 03/23/21 1223 Metformin HCl (Metformin HCl) 1,000 Mg Tablet, 1,000 MG PO BID, (Reported) Entered as Reported by: CYNTHIA KATZ on 10/27/20 1218 Review of Systems Review of Systems Constitutional: see HPI, malaise EENTM: no symptoms reported Respiratory: short of breath Cardiovascular: no symptoms reported Gastrointestinal: no symptoms reported Genitourinary: no symptoms reported Musculoskeletal: other (Pain between her shoulder blade) Skin: no symptoms reported Psychiatric/Neurological: No Symptoms Reported All Other Systems Reviewed Negative Unless Noted: Yes Past Esetwqy-Yyhgan-Dlbpef Hx Patient Social History Tobacco Use?: No Use of E-Cig and/or Vaping dev: No Substance use?: No Alcohol Use?: No Pt feels they are or have been: No Immunizations Up To Date Influenza Vaccine Up-to-Date: Yes; Up-to-Date First/Initial COVID19 Vaccinat: AUGUST 2020 Second COVID19 Vaccination Rene: JANUARY 2021 Third COVID19 Vaccination Date: June Seasonal Allergies Seasonal Allergies: Yes Past Medical History Surgeries: Yes (RIGHT KNEE SCOPE) Gallbladder, Orthopedic, Tonsillectomy Respiratory: No Currently Using CPAP: No Currently Using BIPAP: No Cardiac: No Neurological: No Genitourinary: No Gastrointestinal: Yes (INCISIONAL HERNIA) Gall Bladder Disease Musculoskeletal: No Endocrine: Yes Diabetes, Non-Insulin dep HEENT: No Cancer: No Psychosocial: Yes Depression Integumentary: No Blood Disorders: No Physical Exam Vital Signs - First Documented 11/01/21 20:10 Temp 36.7 Pulse 97 Resp 22 B/P (MAP) 152/82 (105) Pulse Ox 97 O2 Delivery Room Air Capillary Refill : Less Than 3 Seconds Height: 6'0" Weight: 288lbs. oz. 130.683937eu; 35.00 BMI Method:Stated General Appearance: WD/WN, no apparent distress Eyes: Bilateral Eye Normal Inspection, Bilateral Eye PERRL, Bilateral Eye EOMI HEENT: PERRL/EOMI Neck: supple, normal inspection Respiratory: lungs clear, normal breath sounds, no respiratory distress, no accessory muscle use Cardiovascular: regular rate, rhythm (Heart rate in the 90s) Gastrointestinal: normal bowel sounds, non tender, soft, other (Well-healing scars consistent with laparoscopic surgery to the anterior abdominal wall.) Extremities: normal range of motion, normal inspection, no pedal edema, calf tenderness (On the right); No pedal edema, No swelling; other (Positive Homans on the right) Neurologic/Psychiatric: alert, normal mood/affect, oriented x 3 Skin: normal color, warm/dry Progress/Results/Core Measures Suspected Sepsis SIRS Temperature: Pulse: 97 Respiratory Rate: 22 Laboratory Tests 11/01/21 20:10: White Blood Count 7.3 Blood Pressure 152 /82 Mean: 105 Laboratory Tests 11/01/21 20:10: Creatinine 1.16, INR Comment 0.9, Platelet Count 159, Total Bilirubin 0.9 Results/Orders Lab Results Laboratory Tests Test 11/01/21 20:10 11/01/21 21:50 Range/Units White Blood Count 7.3 4.3-11.0 10^3/uL Red Blood Count 5.89 H 4.30-5.52 10^6/uL Hemoglobin 18.7 H 13.3-17.7 g/dL Hematocrit 51 40-54 % Mean Corpuscular Volume 87 80-99 fL Mean Corpuscular Hemoglobin 32 25-34 pg Mean Corpuscular Hemoglobin Concent 37 H 32-36 g/dL Red Cell Distribution Width 11.6 10.0-14.5 % Platelet Count 159 130-400 10^3/uL Mean Platelet Volume 10.2 9.0-12.2 fL Immature Granulocyte % (Auto) 0 % Neutrophils (%) (Auto) 53 42-75 % Lymphocytes (%) (Auto) 33 12-44 % Monocytes (%) (Auto) 8 0-12 % Eosinophils (%) (Auto) 6 0-10 % Basophils (%) (Auto) 0 0-10 % Neutrophils # (Auto) 3.9 1.8-7.8 10^3/uL Lymphocytes # (Auto) 2.4 1.0-4.0 10^3/uL Monocytes # (Auto) 0.6 0.0-1.0 10^3/uL Eosinophils # (Auto) 0.4 H 0.0-0.3 10^3/uL Basophils # (Auto) 0.0 0.0-0.1 10^3/uL Immature Granulocyte # (Auto) 0.0 0.0-0.1 10^3/uL Prothrombin Time 12.8 12.2-14.7 SEC INR Comment 0.9 0.8-1.4 Activated Partial Thromboplast Time 29 24-35 SEC D-Dimer < 0.27 0.00-0.49 UG/ML Sodium Level 137 135-145 MMOL/L Potassium Level 4.0 3.6-5.0 MMOL/L Chloride Level 100 98-107 MMOL/L Carbon Dioxide Level 24 21-32 MMOL/L Anion Gap 13 5-14 MMOL/L Blood Urea Nitrogen 11 7-18 MG/DL Creatinine 1.16 0.60-1.30 MG/DL Estimat Glomerular Filtration Rate 88 BUN/Creatinine Ratio 9 Glucose Level 372 H 70-105 MG/DL Calcium Level 9.7 8.5-10.1 MG/DL Corrected Calcium 9.3 8.5-10.1 MG/DL Magnesium Level 1.9 1.6-2.4 MG/DL Total Bilirubin 0.9 0.1-1.0 MG/DL Aspartate Amino Transf (AST/SGOT) 34 5-34 U/L Alanine Aminotransferase (ALT/SGPT) 78 H 0-55 U/L Alkaline Phosphatase 85 40-136 U/L Myoglobin 39.8 10.0-92.0 NG/ML Troponin I < 0.028 < 0.028 <0.028 NG/ML Total Protein 7.8 6.4-8.2 GM/DL Albumin 4.5 3.2-4.5 GM/DL My Orders Orders - AUTUMN CARVAJAL MD Ekg Tracing (11/01/21 20:13) Cbc With Automated Diff (11/01/21 20:23) Magnesium (11/01/21 20:23) Chest 1 View, Ap/Pa Only (11/01/21 20:23) Comprehensive Metabolic Panel (11/01/21 20:23) Myoglobin Serum (11/01/21 20:) Protime With Inr (11/01/21 20:) Partial Thromboplastin Time (11/01/21 20:23) O2 (11/01/21 20:23) Monitor-Rhythm Ecg Trace Only (11/01/21:) Lipid Panel (11/02/21 06:00) Ed Iv/Invasive Line Start (11/01/21 20:23) Troponin I Leilani (11/01/21 20:23) Aspirin Chewable Tablet (Baby Aspirin Ch (11/01/21 20:30) Fibrin Degradation Products (11/01/21 20:) Ketorolac Injection (Toradol Injection) (11/01/21 21:15) Orphenadrine Inj (Ed Only) (Norflex Inje (11/01/21 21:15) Troponin I Leilani (11/01/21 21:59) Medications Given in ED Current Medications Medications Dose Ordered Sig/Emily Route Start Time Stop Time Status Last Admin Dose Admin Aspirin 324 mg ONCE ONCE PO 11/01/21 20:30 11/01/21 20:31 DC 11/01/21 20:34 324 MG Ketorolac Tromethamine 30 mg ONCE ONCE IVP 11/01/21 21:15 11/01/21 21:16 DC 11/01/21 21:35 30 MG Orphenadrine Citrate 60 mg ONCE ONCE IV 11/01/21 21:15 11/01/21 21:16 DC 11/01/21 21:35 60 MG Vital Signs/I&O 11/01/21 20:10 Temp 36.7 Pulse 97 Resp 22 B/P (MAP) 152/82 (105) Pulse Ox 97 O2 Delivery Room Air Capillary Refill : Less Than 3 Seconds Blood Pressure Mean: 105 Progress Note : Time: 22:33 Progress Note Patient feels better after Toradol and Norflex injections. His labs have been reviewed and are all within normal limits except for his blood sugar which is slightly elevated. His chest x-ray is clear, his D-dimer is negative. EKG shows nonspecific findings. Troponin x2 is negative. His vital signs remained stable. He has no clinical or objective findings of illness, acute coronary syndrome, pulmonary embolism, pneumonia/sepsis. On exam his pain between his shoulder blades is musculoskeletal. Will advise [id number]-meg-[id number] ibuprofen and send some muscle relaxers to his pharmacy. Return precautions discussed. He verbalized understanding. All questions are sought and answered. Patient is stable for discharge. ECG Initial ECG Impression Date: November 01, 2021 Initial ECG Impression Time: 20:19 Initial ECG Rate: 87 Initial ECG Rhythm: Normal Sinus Initial ECG Intervals [place] interval 159 QRS 117 QTc 397 Comment Patient has poor R wave progression over the precordium. No uniform ST segment elevation. No ectopy. QRS mildly prolonged at 117 Diagnostic Imaging Diagonstic Imaging: Xray Plain Films/CT/US/NM/MRI: chest Comments NAME: KODY ZACARIAS MED REC#: [id number] PT STATUS: REG ER : 1995 PHYSICIAN: AUTUMN CARVAJAL MD ADMIT DATE: 11/01/21/ER Draft Date of Exam:11/01/21 CHEST 1 VIEW, AP/PA ONLY EXAMINATION: Chest radiograph, portable AP view. DATE: 11/01/2021 8:59 PM INDICATION: 26-year-old male, chest pain. COMPARISON: March 23, 2021. FINDINGS: Heart size and mediastinal contours are unremarkable. There is no identified pneumothorax. There is no large pleural effusion. There is no identified focal airspace consolidation. IMPRESSION: No identified acute cardiopulmonary abnormality. Dictated on workstation # [id number] Dict: 11/01/212099 Trans: 11/01/212105 [facility] [id number] Interpreted by: HAMMAD MCALLISTER MD Electronically signed by: Departure Impression Primary Impression: Interscapular pain Additional Impressions: Shortness of breath Hyperglycemia due to type 2 diabetes mellitus Qualified Codes: E11.65 - Type 2 diabetes mellitus with hyperglycemia Disposition: 01 HOME, SELF-CARE Condition: Improved Departure-Patient Inst. Decision time for Depature: 22:35 Referrals: DASH MARR MD (PCP/Family) Primary Care Physician Patient Instructions: Shortness of Breath, Adult ED Add. Discharge Instructions: Monitor your symptoms over the next 24 hours for fever, worsening shortness of breath/cough. Come back to the emergency department if any of these things are worsening or you have any other emergent concerning symptoms. Take ttiy-[id number] ibuprofen, 3 tablets which is 600 mg every 6 hours with food as needed for pain. I have also sent a muscle relaxer to your pharmacy that you can take as needed every 8 hours. The muscle relaxer may make you sleepy, do not take it and drive. Scripts Cyclobenzaprine HCl (Cyclobenzaprine HCl) 10 Mg Tablet 10 MG PO Q8H PRN for muscle spasm for 3 Days, #9 TAB Prov: AUTUMN CARVAJAL MD 11/01/21 Copy Copies To 1: DASH MARR MD, KATHRYN M MD November 01, 2021 20:23
[2021-11-01 20:30] LABS: ALBUMIN 4.5 GM/DL (3.2-4.5); BASOPHILS % (AUTO) 0 % (0-10); EOSINOPHILS # (AUTO) 0.4 10^3/uL (0.0-0.3); EOSINOPHILS % (AUTO) 6 % (0-10); HEMATOCRIT 51 % (40-54); HEMOGLOBIN 18.7 g/dL (13.3-17.7); LYMPHOCYTES # (AUTO) 2.4 10^3/uL (1.0-4.0); LYMPHOCYTES % (AUTO) 33 % (12-44); MEAN CORPUSCULAR HEMOGLOBIN 32 pg (25-34); MEAN CORPUSCULAR HGB CONC 37 g/dL (32-36); MEAN CORPUSCULAR VOLUME 87 fL (80-99); MEAN PLATELET VOLUME 10.2 fL (9.0-12.2); MONOCYTES # (AUTO) 0.6 10^3/uL (0.0-1.0); MONOCYTES % (AUTO) 8 % (0-12); NEUTROPHILS # (AUTO) 3.9 10^3/uL (1.8-7.8); NEUTROPHILS % (AUTO) 53 % (42-75); PLATELET COUNT 159 10^3/uL (130-400); WHITE BLOOD COUNT 7.3 10^3/uL (4.3-11.0)
[2021-11-01] MEDS ORDERED: ASPIRIN 81 MG CHEW (CHILDREN'S ASA) PO ONE (20:30)
[2021-11-01 20:31] LABS: CALCIUM 9.7 MG/DL (8.5-10.1)
[2021-11-01 20:32] LABS: TOTAL PROTEIN 7.8 GM/DL (6.4-8.2)
[2021-11-01 20:34] LABS: BILIRUBIN,TOTAL 0.9 MG/DL (0.1-1.0); INR 0.9 (0.8-1.4); PROTHROMBIN TIME PATIENT 12.8 SEC (12.2-14.7)
[2021-11-01 20:36] LABS: CREATININE SERUM 1.16 MG/DL (0.60-1.30)
[2021-11-01 20:39] LABS: MAGNESIUM 1.9 MG/DL (1.6-2.4)
--- NOTE | 2021-11-01 21:07 | Diagnostic Imaging Report ---
EXAMINATION: Chest radiograph, portable AP view. DATE: 11/01/2021 8:59 PM INDICATION: 26-year-old male, chest pain. COMPARISON: March 23, 2021. FINDINGS: Heart size and mediastinal contours are unremarkable. There is no identified pneumothorax. There is no large pleural effusion. There is no identified focal airspace consolidation. IMPRESSION: No identified acute cardiopulmonary abnormality. Dictated by: Dictated on workstation # [id number]
[2021-11-01] MEDS ORDERED: KETOROLAC 30 MG/ML VIAL IVP ONE (21:15)
[2021-11-01] MEDS ORDERED: ORPHENADRINE 60 MG/2 ML (NORFLEX) AMP (ED ONLY) IV ONE (21:15)
[2021-11-01] MEDS ORDERED: CYCL10TA25 PO (22:37)
[2021-11-01 22:48] VITALS: BP 139/85
== END 2021-11-01 22:47 | disposition home or self-care (01) ==
LOC: EDUNIT# 19:56 → ER 19:59
DX: E11.65 Type 2 diabetes mellitus with hyperglycemia (principal); R06.02 Shortness of breath; M25.519 Pain in unspecified shoulder
CPT/HCPCS: 36415; 71045; 80053; 83735; 83874; 84484; 85025; 85379; 85610; 85730; 93005; 93041

== ENCOUNTER 2022-05-01 14:44 | Emergency (ER) | payer BC ==
[~2022-05-01 14:44] MED LIST changes: +CYCL10TA25 PO
--- NOTE | 2022-05-01 15:20 | ED Chest Pain ---
General Chief Complaint: Chest Pain Stated Complaint: CHEST PAIN Source: patient History of Present Illness Date Seen by Provider: May 01, 2022 Time Seen by Provider: 14:48 Initial Comments 27-year-old male presenting with complaints of chest pain on the right side and around his right upper quadrant. He also was having some pain in left shoulder going into his arm. He states his symptoms have been going on for few weeks. Today he felt like something was not right and he left work to come to the emergency department to be evaluated. He has been concerned that he had problems with his heart over the last few weeks. He has not tried to get in with his primary care doctor for evaluation. He denies having fever, chills, cough, nasal congestion, sore throat, nausea, vomiting, constipation, diarrhea, pain with urination, blood in his urine, blood in his stools. He has not tried taking anything for pain today. He seems very anxious. Timing/Duration: intermittent (Over the last few weeks) Severity/Quality: pressure Location: shoulder (Left shoulder and arm), abdomen (Breath upper quadrant and lower chest) Radiation: arms (Left arm from the shoulder) Activities at Onset: none Prior CP/Workup: non-cardiac ASA po PORT PURSER: No NTG SL PORT PURSER: No Associated Symptoms: No back pain, No diaphoresis, No dizziness, No edema, No fatigue, No fever/chills, No headache, No heartburn, No nausea/vomiting, No rash, No shortness of breath, No swelling/lump in chest Allergies and Home Medications Allergies Coded Allergies: amoxicillin (Verified Allergy, Severe, ANAPHYLAXIS, 08/27/18) clavulanic acid (Verified Allergy, Severe, ANAPHYLAXIS, 08/27/18) Patient Home Medication List Home Medication List Reviewed: Yes Cyclobenzaprine HCl (Cyclobenzaprine HCl) 10 Mg Tablet, 10 MG PO Q8H PRN for muscle spasm Prescribed by: AUTUMN CARVAJAL on 11/01/212236 Docusate Sodium (Colace) 100 Mg Capsule, 100 MG PO BID Prescribed by: MARTA YOO on 08/23/21 1112 Esomeprazole Magnesium (Nexium 24Hr) 20 Mg Capsule.dr, 20 MG PO UD, (Reported) Entered as Reported by: MANJINDER MARR on 08/16/21 1150 Hydrocodone/Acetaminophen (Hydrocodone-Acetamin 5-325 mg) 1 Each Tablet, 1 EACH PO Q4H PRN for PAIN-MODERATE (5-7) Prescribed by: MARTA YOO on 08/23/21 1113 Hydroxyzine HCl (Hydroxyzine HCl) 25 Mg Tablet, 25 MG PO TID PRN for ANXIETY Prescribed by: IGGY MCRAE on 03/23/21 1223 Metformin HCl (Metformin HCl) 1,000 Mg Tablet, 1,000 MG PO BID, (Reported) Entered as Reported by: CYNTHIA KATZ on 10/27/20 1218 Review of Systems Review of Systems Constitutional: No chills, No fever EENTM: No Symptoms Reported Respiratory: No Symptoms Reported Cardiovascular: See HPI Gastrointestinal: See HPI Genitourinary: Denies Pain Musculoskeletal: no symptoms reported Skin: No rash Psychiatric/Neurological: Denies Headache Past Owiaocc-Nfsfgz-Injrdt Hx Immunizations Up To Date First/Initial COVID19 Vaccinat: AUGUST 2020 Second COVID19 Vaccination Rene: JANUARY 2021 Third COVID19 Vaccination Date: June Seasonal Allergies Seasonal Allergies: Yes Past Medical History Surgeries: Yes (RIGHT KNEE SCOPE) Gallbladder, Orthopedic, Tonsillectomy Respiratory: No Currently Using CPAP: No Currently Using BIPAP: No Cardiac: No Neurological: No Genitourinary: No Gastrointestinal: Yes (INCISIONAL HERNIA) Gall Bladder Disease Musculoskeletal: No Endocrine: Yes Diabetes, Non-Insulin dep HEENT: No Cancer: No Psychosocial: Yes Depression Integumentary: No Blood Disorders: No Physical Exam Vital Signs Vital Signs - First Documented 05/01/22 14:44 Temp 36.7 Pulse 86 Resp 16 B/P (MAP) 123/70 (87) Pulse Ox 97 O2 Delivery Room Air Capillary Refill : Height, Weight, BMI Height: 6'0" Weight: 288lbs. oz. 130.594182bw; 35.00 BMI Method:Stated General Appearance: No Apparent Distress, Anxious, Obese HEENT: PERRL/EOMI, Pharynx Normal Neck: Full Range of Motion, Normal Inspection, Non Tender, Supple Respiratory: Chest Non Tender, Lungs Clear, Normal Breath Sounds, No Accessory Muscle Use, No Respiratory Distress Cardiovascular: Regular Rate, Rhythm, Normal Peripheral Pulses Gastrointestinal: Normal Bowel Sounds, No Pulsatile Mass, Soft; No Distended, No Guarding, No Rebound; Tenderness (RUQ) Rectal: Deferred Extremity: Normal Capillary Refill, Normal Inspection, No Pedal Edema Neurologic/Psychiatric: Alert, Oriented x3, ethylene plant helper II-XII Norm as Tested Skin: Normal Color, Warm/Dry Progress/Results/Core Measures Results/Orders Lab Results Laboratory Tests Test 05/01/22 15:10 Range/Units White Blood Count 7.9 4.3-11.0 10^3/uL Red Blood Count 6.13 H 4.30-5.52 10^6/uL Hemoglobin 19.6 H 13.3-17.7 g/dL Hematocrit 53 40-54 % Mean Corpuscular Volume 87 80-99 fL Mean Corpuscular Hemoglobin 32 25-34 pg Mean Corpuscular Hemoglobin Concent 37 H 32-36 g/dL Red Cell Distribution Width 11.9 10.0-14.5 % Platelet Count 173 130-400 10^3/uL Mean Platelet Volume 9.5 9.0-12.2 fL Immature Granulocyte % (Auto) 0 % Neutrophils (%) (Auto) 57 42-75 % Lymphocytes (%) (Auto) 31 12-44 % Monocytes (%) (Auto) 8 0-12 % Eosinophils (%) (Auto) 4 0-10 % Basophils (%) (Auto) 1 0-10 % Neutrophils # (Auto) 4.5 1.8-7.8 10^3/uL Lymphocytes # (Auto) 2.5 1.0-4.0 10^3/uL Monocytes # (Auto) 0.6 0.0-1.0 10^3/uL Eosinophils # (Auto) 0.3 0.0-0.3 10^3/uL Basophils # (Auto) 0.1 0.0-0.1 10^3/uL Immature Granulocyte # (Auto) 0.0 0.0-0.1 10^3/uL Prothrombin Time 12.8 12.2-14.7 SEC INR Comment 0.9 0.8-1.4 Activated Partial Thromboplast Time 28 24-35 SEC Sodium Level 139 135-145 MMOL/L Potassium Level 3.8 3.6-5.0 MMOL/L Chloride Level 99 98-107 MMOL/L Carbon Dioxide Level 27 21-32 MMOL/L Anion Gap 13 5-14 MMOL/L Blood Urea Nitrogen 16 7-18 MG/DL Creatinine 1.03 0.60-1.30 MG/DL Estimat Glomerular Filtration Rate 101 BUN/Creatinine Ratio 16 Glucose Level 208 H 70-105 MG/DL Calcium Level 10.0 8.5-10.1 MG/DL Corrected Calcium 8.5-10.1 MG/DL Magnesium Level 1.9 1.6-2.4 MG/DL Total Bilirubin 0.8 0.1-1.0 MG/DL Aspartate Amino Transf (AST/SGOT) 25 5-34 U/L Alanine Aminotransferase (ALT/SGPT) 54 0-55 U/L Alkaline Phosphatase 91 40-136 U/L Troponin I < 0.30 <0.30 NG/ML Pro-B-Type Natriuretic Peptide < 5.0 <125.0 PG/ML Total Protein 7.8 6.4-8.2 GM/DL Albumin 4.7 H 3.2-4.5 GM/DL Lipase 40 8-78 U/L My Orders Orders - IGGY MCRAE MD Cbc With Automated Diff (05/01/22 15:18) Magnesium (05/01/22 15:18) Chest 1 View Ap/Pa Only (05/01/22 15:18) Ekg Tracing (05/01/22 15:18) Comprehensive Metabolic Panel (05/01/22 15:18) Protime With Inr (05/01/22 15:18) Partial Thromboplastin Time (05/01/22 15:18) O2 (05/01/22 15:18) Monitor-Rhythm Ecg Trace Only (05/01/22 15:18) Ed Iv/Invasive Line Start (05/01/22 15:18) Lipase (05/01/22 15:18) Troponin I Fs (05/01/22 15:18) Probnp Fs (05/01/22 15:18) Vital Signs/I&O 05/01/22 05/01/22 14:44 18:21 Temp 36.7 36.7 Pulse 86 80 Resp 16 16 B/P (MAP) 123/70 (87) 116/68 Pulse Ox 97 99 O2 Delivery Room Air Room Air Progress Progress Note #1: Progress Note Check ECG with labs and CXR to evaluate his complaints of chest pain and RUQ pain for last few weeks. Initial ECG did not show acute ST elevation or change from prior tracings. Progress Note #2: Progress Note Labs show no acute significant abnormality to account for his complaints of right upper quadrant pain and pain into the left shoulder. He had CBC with elevation of his hemoglobin to 19.6. His chemistry panel did not show acute significant abnormality to account for his symptoms. He had mild elevation of his glucose. His troponin was less than 0.3. He had no elevation of his proBNP. His chest x-ray did not show any acute process. Reassured patient that his test here did not show any evidence of cardiac disease. Encouraged to try using Nexium or acid reducing medicine in case there was an ulcer or issues with his esophagus. Encouraged to follow-up with his primary care provider about the elevated hemoglobin as well as his complaints of right upper quadrant and epigastric pain and pain in the left shoulder into his arm. They may want him to have an EGD or scope to evaluate for ulcers. They may also want him to have a cardiac stress test to further evaluate his heart. Counseled on follow-up and return precautions. Initial ECG Impression Date: May 01, 2022 Initial ECG Impression Time: 14:53 Initial ECG Rate: 71 Initial ECG Rhythm: Normal Sinus Initial ECG Comparisson: Unchanged (11/01/2021) Comment Normal sinus rhythm with a heart rate of 71 bpm. He does have a sinus arrhythmia. His OK interval is 157 ms. There is no acute ST elevation. He has QT interval 349 ms with a QTc interval 372 ms. Overall appears similar to prior tracing from November 01, 2021. This was based on my independent review and interpretation of his electrocardiogram. Diagnostic Imaging Diagonstic Imaging: Xray Plain Films/CT/US/NM/MRI: chest Comments [facility] [place], [place] NAME: KODY ZACARIAS [facility] REC#: [id number] PT STATUS: REG ER : 1995 PHYSICIAN: IGGY MCRAE MD ADMIT DATE: 05/01/22/ER FS Signed Date of Exam:05/01/22 CHEST 1 VIEW AP/PA ONLY INDICATION: Chest pain. TECHNIQUE: Frontal chest obtained at 03:19 p.m. and compared to 11/01/2021. FINDINGS: Heart and mediastinal silhouette are normal in appearance. The lungs are clear. There is no pneumothorax or pleural fluid. IMPRESSION: Negative chest. Dictated by: Dictated on workstation # [id number] Dict: 05/01/22 1536 Trans: 05/01/22 1653 [id number] Interpreted by: MITRA HOBBS MD Electronically signed by: MITRA HOBBS MD 05/01/22 1653 Reviewed: Reviewed by Me Departure Impression Primary Impression: Chest pain Qualified Codes: R07.9 - Chest pain, unspecified Disposition: 01 HOME, SELF-CARE Condition: Stable Departure-Patient Inst. Decision time for Depature: 18:14 Referrals: SYLVESTER SEE APRN (PCP) Primary Care Physician [facility]/MICHAEL (Family) Primary Care Physician Patient Instructions: Chest Pain, Adult ED Add. Discharge Instructions: Check back with primary care doctor about your Hemoglobin level of 19.6. See if they want you to have testing to look for an ulcer or issue with your stomach. They may also want a cardiac stress test, but all of your tests from a heart stand point here were ok and did not show damage. Try taking the Nexium you have at home on a daily basis for at least the next 1- 2 weeks to see if that helps your symptoms while you work with your doctor for additional testing. All discharge instructions reviewed with patient and/or family. Voiced understanding. Work/School Note: Work Release Form Date Seen in the Emergency Department: May 01, 2022 Return to Work: May 02, 2022 Restrictions: No Restrictions IGGY MCRAE MD May 01, 2022 15:20
[2022-05-01 15:24] LABS: BASOPHILS # (AUTO) 0.1 10^3/uL (0.0-0.1); BASOPHILS % (AUTO) 1 % (0-10); EOSINOPHILS # (AUTO) 0.3 10^3/uL (0.0-0.3); EOSINOPHILS % (AUTO) 4 % (0-10); HEMATOCRIT 53 % (40-54); HEMOGLOBIN 19.6 g/dL (13.3-17.7); LYMPHOCYTES # (AUTO) 2.5 10^3/uL (1.0-4.0); LYMPHOCYTES % (AUTO) 31 % (12-44); MEAN CORPUSCULAR HEMOGLOBIN 32 pg (25-34); MEAN CORPUSCULAR HGB CONC 37 g/dL (32-36); MEAN CORPUSCULAR VOLUME 87 fL (80-99); MEAN PLATELET VOLUME 9.5 fL (9.0-12.2); MONOCYTES # (AUTO) 0.6 10^3/uL (0.0-1.0); MONOCYTES % (AUTO) 8 % (0-12); NEUTROPHILS # (AUTO) 4.5 10^3/uL (1.8-7.8); NEUTROPHILS % (AUTO) 57 % (42-75); PLATELET COUNT 173 10^3/uL (130-400); WHITE BLOOD COUNT 7.9 10^3/uL (4.3-11.0)
--- NOTE | 2022-05-01 15:44 | Diagnostic Imaging Report ---
INDICATION: Chest pain. TECHNIQUE: Frontal chest obtained at 03:19 p.m. and compared to 11/01/2021. FINDINGS: Heart and mediastinal silhouette are normal in appearance. The lungs are clear. There is no pneumothorax or pleural fluid. IMPRESSION: Negative chest. Dictated by: Dictated on workstation # [id number]
[2022-05-01 15:52] LABS: INR 0.9 (0.8-1.4); PROTHROMBIN TIME PATIENT 12.8 SEC (12.2-14.7)
[2022-05-01 15:57] LABS: BUN/CREATININE RATIO 16; CARBON DIOXIDE 27 MMOL/L (21-32); CHLORIDE 99 MMOL/L (98-107); CREATININE SERUM 1.03 MG/DL (0.60-1.30); GFR ESTIMATED 101; GLUCOSE 208 MG/DL (70-105); POTASSIUM 3.8 MMOL/L (3.6-5.0); SODIUM 139 MMOL/L (135-145)
[2022-05-01 15:58] LABS: ALANINE AMINOTRANSFERASE 54 U/L (0-55); ALBUMIN 4.7 GM/DL (3.2-4.5); ALKALINE PHOSPHATASE 91 U/L (40-136); BILIRUBIN,TOTAL 0.8 MG/DL (0.1-1.0); LIPASE 40 U/L (8-78); MAGNESIUM 1.9 MG/DL (1.6-2.4); TOTAL PROTEIN 7.8 GM/DL (6.4-8.2)
[2022-05-01 18:21] VITALS: BP 116/68
== END 2022-05-01 18:21 | disposition home or self-care (01) ==
LOC: EDUNIT# 14:44 → ER FS 14:45
DX: R07.89 Other chest pain (principal); R10.11 Right upper quadrant pain; R10.13 Epigastric pain; M25.512 Pain in left shoulder; R71.8 Other abnormality of red blood cells; E66.9 Obesity, unspecified; Z68.35 Body mass index [BMI] 35.0-35.9, adult
CPT/HCPCS: 36415; 71045; 80053; 83690; 83735; 83880; 84484; 85025; 85610; 85730; 93005; 93041

== ENCOUNTER 2022-07-24 22:02 | Emergency (ER) | payer OTHER ==
[~2022-07-24] VITALS: Ht 180 cm; Wt 125.6 kg
--- NOTE | 2022-07-24 22:17 | ED GU-Male ---
General Stated Complaint: TIGHTNESS/SWELLING IN PELVIC AREA Source: patient History of Present Illness Date Seen by Provider: Jul 24, 2022 Time Seen by Provider: 22:08 Initial Comments 27-year-old male presenting with complaints of irritation to his penis. This is been going on for several weeks and he has been seen through the clinic in urgent care. They had done testing for sexually transmitted infections which were all negative per the patient report. They did a course of doxycycline which she thought initially was helping but then by the end of the course of antibiotics his symptoms were the same or worse. He has burning pain as well as dryness and itching. Tonight the skin was so dry it started to have small cracks in the surface of the skin around his foreskin and distal penis. He denies any difficulty urinating and has not had so much constriction that he could not pee. He was concerned with the increased dryness and cracking of the foreskin tonight so he came to be evaluated. Timing/Duration: changing over time (Waxing and waning and intensity over the last several weeks) Severity/Quality: moderate, burning (Was some itching and sharp pain) Location: other (Penis and foreskin) Radiation: none Activities at Onset: none Prior Genitourinary Problems: none Sexual Tamiami History: less than 2 months ago, single partner Associated Symptoms: No abdominal pain, No diaphoresis, No dysuria, No fever/chills, No loss of bladder control, No lower back pain, No lumps, No mass, No nausea/vomiting, No nocturia, No polyuria, No swelling, No syncope, No urinary frequency Allergies and Home Medications Allergies Coded Allergies: amoxicillin (Verified Allergy, Severe, ANAPHYLAXIS, 08/27/18) clavulanic acid (Verified Allergy, Severe, ANAPHYLAXIS, 08/27/18) Patient Home Medication List Home Medication List Reviewed: Yes Clotrimazole (Clotrimazole) 1 % Cream..g., 15 GM TP UD Prescribed by: IGGY MCRAE on 07/24/222250 Cyclobenzaprine HCl (Cyclobenzaprine HCl) 10 Mg Tablet, 10 MG PO Q8H PRN for muscle spasm Prescribed by: AUTUMN CARVAJAL on 11/01/21 223 Docusate Sodium (Colace) 100 Mg Capsule, 100 MG PO BID Prescribed by: MARTA YOO on 08/23/21 1112 Esomeprazole Magnesium (Nexium 24Hr) 20 Mg Capsule.dr, 20 MG PO UD, (Reported) Entered as Reported by: MANJINDER MARR on 08/16/21 1150 Hydrocodone/Acetaminophen (Hydrocodone-Acetamin 5-325 mg) 1 Each Tablet, 1 EACH PO Q4H PRN for PAIN-MODERATE (5-7) Prescribed by: MARTA YOO on 08/23/21 1113 Hydroxyzine HCl (Hydroxyzine HCl) 25 Mg Tablet, 25 MG PO TID PRN for ANXIETY Prescribed by: IGGY MCRAE on 03/23/21 1223 Metformin HCl (Metformin HCl) 1,000 Mg Tablet, 1,000 MG PO BID, (Reported) Entered as Reported by: CYNTHIA KATZ on 10/27/20 1218 Review of Systems Review of Systems Constitutional: No chills, No fever EENTM: no symptoms reported Respiratory: no symptoms reported Cardiovascular: no symptoms reported Gastrointestinal: no symptoms reported Genitourinary: see HPI; denies discharge Musculoskeletal: no symptoms reported Skin: no symptoms reported Psychiatric/Neurological: No Symptoms Reported Past Rhtvamr-Yhoget-Joakzu Hx Patient Social History Tobacco Use?: No Use of E-Cig and/or Vaping dev: No Substance use?: No Alcohol Use?: No Immunizations Up To Date First/Initial COVID19 Vaccinat: AUGUST 2020 Second COVID19 Vaccination Rene: JANUARY 2021 Third COVID19 Vaccination Date: June Seasonal Allergies Seasonal Allergies: Yes Past Medical History Surgery/Hospitalization HX: Type 2 DM; iguinal hernia repair; Cholecysectomy Surgeries: Yes (RIGHT KNEE SCOPE) Gallbladder, Orthopedic, Tonsillectomy Respiratory: No Currently Using CPAP: No Currently Using BIPAP: No Cardiac: No Neurological: No Genitourinary: No Gastrointestinal: Yes (INCISIONAL HERNIA) Gall Bladder Disease Musculoskeletal: No Endocrine: Yes Diabetes, Non-Insulin dep HEENT: No Cancer: No Psychosocial: Yes Depression Integumentary: No Blood Disorders: No Physical Exam Vital Signs Vital Signs - First Documented 07/24/22 22:18 Temp 35.6 Pulse 91 Resp 16 B/P (MAP) 143/90 (107) Capillary Refill : Height, Weight, BMI Height: 6'0" Weight: 288lbs. oz. 130.676508rq; 35.00 BMI Method:Stated General Appearance: WD/WN, no apparent distress, obese Cardiovascular: normal peripheral pulses Gastrointestinal: normal bowel sounds, non tender, soft, no pulsatile mass Male: other (Uncircumcised male with erythema and dry scaly skin to the foreskin and distal penis. There is no drainage or discharge.) Extremities: normal range of motion, normal capillary refill Neurologic/Psychiatric: alert, oriented x 3 Skin: warm/dry Progress/Results/Core Measures Suspected Sepsis SIRS Temperature: Pulse: Respiratory Rate: Blood Pressure / Mean: Results/Orders Vital Signs/I&O 07/24/22 22:18 Temp 35.6 Pulse 91 Resp 16 B/P (MAP) 143/90 (107) Capillary Refill : Progress Note : Progress Note I reviewed with the patient that this could still be related to an infection. It might be more of a yeast type infection than bacterial since the doxycycline did not help that much. We will try a topical medication and encouraged him to be more diligent with cleaning regimen. Encouraged follow-up through urology and given the phone number and information for Dr. Hackett out of [place] but advised that patient can see whoever he liked. May use acetaminophen and/or ibuprofen [id number] to help with his pain and discomfort. Started on clotrimazole 1% cream twice a day for a week. Reassured patient that I did not see anything emergent where he would have to be admitted or going to see a urologist emergently tonight. Departure Impression Primary Impression: Carlotta Disposition: 01 HOME, SELF-CARE Condition: Stable Departure-Patient Inst. Decision time for Depature: 22:55 Referrals: NO,LOCAL PHYSICIAN (PCP) Primary Care Physician [facility] Patient Instructions: Carlotta (DC) Add. Discharge Instructions: Follow up with Urology for continued symptoms. Dr. Eri Hackett is one of the closest Urologists and works out of the [facility] in [place], [place]. His address is [address] [place] [id number] His phone number for the clinic is Use the topical cream to see if that helps to clear up your symptoms. Make sure to follow good hygiene and clean the foreskin well Be seen immediately if you have the foreskin get so tight that it is preventing you from urinating. Scripts Clotrimazole (Clotrimazole) 1 % Cream..g. 15 GM TP UD for Balanitis for 7 Days, #30 GM 1 Refill Apply thin layer to effected area of penis and foreskin, twice a day for 7 days Prov: IGGY MCRAE MD 07/24/22 IGGY MCRAE MD Jul 24, 2022 22:17
[2022-07-24 22:18] VITALS: BP 143/90
[2022-07-24] MEDS ORDERED: CLOT15CR28 TP (22:51)
== END 2022-07-24 22:50 | disposition home or self-care (01) ==
LOC: EDUNIT# 22:02 → ER FS 22:04
DX: N48.1 Balanitis (principal); Z88.1 Allergy status to other antibiotic agents
CPT/HCPCS: 99282

== ENCOUNTER 2023-01-24 10:33 | Emergency (ER) | payer OTHER ==
[~2023-01-24] VITALS: Ht 180.3 cm; Wt 120.0 kg
[~2023-01-24 10:33] MED LIST changes: +CLOT15CR28 TP
[2023-01-24] MEDS ORDERED: NS IV 1000 ML 1,000 ML IV SCH (10:45)
[2023-01-24] MEDS ORDERED: ONDANSETRON 4 MG/2 ML (SDV) Z0FRAN IVP ONE (10:45)
--- NOTE | 2023-01-24 10:45 | ED GI ---
General Chief Complaint: Abdominal/GI Problems Stated Complaint: VOMITING | ABD PAIN Source of Information: Patient Exam Limitations: No Limitations History of Present Illness Date Seen by Provider: Jan 24, 2023 Time Seen by Provider: 10:36 Initial Comments 28-year-old male presents to the emergency department today for right upper laureano drant abdominal pain nausea and vomiting. Symptoms started on Friday and have been persistent since that time. He states he is not able to keep anything down. No changes in bowel or bladder habits though his urine has been somewhat darker he thinks secondary to dehydration. No dysuria or hematuria he does describe sharp stabbing in his right upper abdomen without radiation. No aggravating or alleviating factors. He states that similar to symptoms he had prior to having his gallbladder removed. He has had no other abdominal surgeries. No sick contacts. All other systems reviewed and negative except documented per HPI. Voice recognition software was used to help create this chart Allergies and Home Medications Allergies Coded Allergies: amoxicillin (Verified Allergy, Severe, ANAPHYLAXIS, 01/24/23) clavulanic acid (Verified Allergy, Severe, ANAPHYLAXIS, 01/24/23) Patient Home Medication List Home Medication List Reviewed: Yes Clotrimazole (Clotrimazole) 1 % Cream..g., 15 GM TP UD Prescribed by: IGGY MCRAE on 07/24/22 2251 Cyclobenzaprine HCl (Cyclobenzaprine HCl) 10 Mg Tablet, 10 MG PO Q8H PRN for muscle spasm Prescribed by: AUTUMN CARVAJAL on 11/01/21 2237 Docusate Sodium (Colace) 100 Mg Capsule, 100 MG PO BID Prescribed by: MARTA YOO on 08/23/21 1112 Esomeprazole Magnesium (Nexium 24Hr) 20 Mg Capsule.dr, 20 MG PO UD, (Reported) Entered as Reported by: MANJINDER MARR on 08/16/21 1150 Hydrocodone/Acetaminophen (Hydrocodone-Acetamin 5-325 mg) 1 Each Tablet, 1 EACH PO Q4H PRN for PAIN-MODERATE (5-7) Prescribed by: MARTA YOO on 08/23/21 1113 Hydroxyzine HCl (Hydroxyzine HCl) 25 Mg Tablet, 25 MG PO TID PRN for ANXIETY Prescribed by: IGGY MCRAE on 03/23/21 1223 Metformin HCl (Metformin HCl) 1,000 Mg Tablet, 1,000 MG PO BID, (Reported) Entered as Reported by: CYNTHIA Lyle [facility] on 10/27/20 1218 Review of Systems Review of Systems Constitutional: see HPI Past Znnalmq-Mxwptj-Jwxzeg Hx Patient Social History Tobacco Use?: No Use of E-Cig and/or Vaping dev: No Substance use?: No Alcohol Use?: No Pt feels they are or have been: No Immunizations Up To Date First/Initial COVID19 Vaccinat: AUGUST 2020 Second COVID19 Vaccination Rene: JANUARY 2021 Third COVID19 Vaccination Date: JUNE 2021 Seasonal Allergies Seasonal Allergies: Yes Past Medical History Surgery/Hospitalization HX: Type 2 DM; iguinal hernia repair; Cholecysectomy Surgeries: Yes (RIGHT KNEE SCOPE) Gallbladder, Orthopedic, Tonsillectomy Respiratory: No Currently Using CPAP: No Currently Using BIPAP: No Cardiac: No Neurological: No Genitourinary: No Gastrointestinal: Yes (INCISIONAL HERNIA) Gall Bladder Disease Musculoskeletal: No Endocrine: Yes Diabetes, Non-Insulin dep HEENT: No Cancer: No Psychosocial: Yes Depression Integumentary: No Blood Disorders: No Physical Exam Vital Signs Vital Signs - First Documented 01/24/23 10:40 Temp 35.5 Pulse 90 Resp 16 B/P (MAP) 86/ Pulse Ox 95 O2 Delivery Room Air O2 Flow Rate 144.00 Capillary Refill : Height/Weight/BMI Height: 6'0" Weight: 288lbs. oz. 130.011260og; 38.00 BMI Method:Stated General Appearance: WD/WN, no apparent distress Respiratory: chest non-tender, lungs clear, normal breath sounds, no respiratory distress, no accessory muscle use Cardiovascular: regular rate, rhythm, no murmur Gastrointestinal: normal bowel sounds, soft, no organomegaly, tenderness (Tenderness palpation the right upper abdomen with voluntary guarding. No rebound tenderness. No mass organomegaly. No skin changes.) Back: no CVA tenderness Neurologic/Psychiatric: alert, normal mood/affect, oriented x 3 Skin: normal color, warm/dry Progress/Results/Core Measures Results/Orders Lab Results Laboratory Tests Test 01/24/23 10:40 Range/Units White Blood Count 9.4 4.3-11.0 10^3/uL Red Blood Count 6.09 H 4.30-5.52 10^6/uL Hemoglobin 19.6 H 13.3-17.7 g/dL Hematocrit 54 40-54 % Mean Corpuscular Volume 89 80-99 fL Mean Corpuscular Hemoglobin 32 25-34 pg Mean Corpuscular Hemoglobin Concent 36 32-36 g/dL Red Cell Distribution Width 11.9 10.0-14.5 % Platelet Count 164 130-400 10^3/uL Mean Platelet Volume 9.7 9.0-12.2 fL Immature Granulocyte % (Auto) 0 % Neutrophils (%) (Auto) 68 42-75 % Lymphocytes (%) (Auto) 21 12-44 % Monocytes (%) (Auto) 8 0-12 % Eosinophils (%) (Auto) 2 0-10 % Basophils (%) (Auto) 0 0-10 % Neutrophils # (Auto) 6.4 1.8-7.8 10^3/uL Lymphocytes # (Auto) 2.0 1.0-4.0 10^3/uL Monocytes # (Auto) 0.8 0.0-1.0 10^3/uL Eosinophils # (Auto) 0.2 0.0-0.3 10^3/uL Basophils # (Auto) 0.0 0.0-0.1 10^3/uL Immature Granulocyte # (Auto) 0.0 0.0-0.1 10^3/uL Sodium Level 139 135-145 MMOL/L Potassium Level 4.3 3.6-5.0 MMOL/L Chloride Level 103 98-107 MMOL/L Carbon Dioxide Level 25 21-32 MMOL/L Anion Gap 11 5-14 MMOL/L Blood Urea Nitrogen 14 7-18 MG/DL Creatinine 1.09 0.60-1.30 MG/DL Estimat Glomerular Filtration Rate 94 BUN/Creatinine Ratio 13 Glucose Level 199 H 70-105 MG/DL Calcium Level 9.4 8.5-10.1 MG/DL Corrected Calcium 9.2 8.5-10.1 MG/DL Total Bilirubin 1.4 H 0.1-1.0 MG/DL Aspartate Amino Transf (AST/SGOT) 29 5-34 U/L Alanine Aminotransferase (ALT/SGPT) 51 0-55 U/L Alkaline Phosphatase 69 40-136 U/L Total Protein 7.5 6.4-8.2 GM/DL Albumin 4.3 3.2-4.5 GM/DL Lipase 17 8-78 U/L My Orders Orders - SERENITY ROMAN DO Comprehensive Metabolic Panel (01/24/23 10:42) Lipase (01/24/23 10:42) Ua Culture If Indicated (01/24/23 10:42) Cbc With Automated Diff (01/24/23 10:42) Ondansetron Injection (Zofran Injectio (01/24/23 10:45) Ns Iv 1000 Ml (Sodium Chloride 0.9%) (01/24/23 10:45) Medications Given in ED Current Medications Medications Dose Ordered Sig/Emily Route Start Time Stop Time Status Last Admin Dose Admin Ondansetron HCl 8 mg ONCE ONCE IVP 01/24/23 10:45 01/24/23 10:46 DC 01/24/23 10:49 8 MG Vital Signs/I&O 01/24/23 10:40 Temp 35.5 Pulse 90 Resp 16 B/P (MAP) 86/ Pulse Ox 95 O2 Delivery Room Air O2 Flow Rate 144.00 Departure Communication (Admissions) Patient is hemodynamically stable. He had no recurrence of nausea vomiting here and after IV Zofran was feeling somewhat better, requesting fluids and able to keep this down without difficulty. His labs are normal including chemistry 12, lipase, CBC. His abdominal exam is nonsurgical but he does have some mild focal tenderness in his right upper abdomen. He has had a cholecystectomy. No evidence of pancreatitis at this time we discharged home in stable condition with supportive care. Impression Primary Impression: Nausea and vomiting Qualified Codes: R11.2 - Nausea with vomiting, unspecified Disposition: HOME, SELF-CARE Condition: Stable Departure-Patient Inst. Referrals: TRAVIS MORGAN DO (PCP/Family) Primary Care Physician Patient Instructions: Nausea and Vomiting, Adult (DC) Add. Discharge Instructions: Take the nausea medicine as prescribed by dissolving it under your tongue. Increase your fluids at home by taking small sips of fluids every 15 minutes. Follow-up with your primary doctor for any nonemergent needs. Return to the emergency department for any severe concerns. All discharge instructions reviewed with patient and/or family. Voiced understanding. Scripts Ondansetron (Ondansetron Odt) 8 Mg Tab.rapdis 8 MG SL Q6H PRN for NAUSEA/VOMITING for 5 Days, #20 TAB Prov: SERENITY ROMAN DO 01/24/23 SERENITY ROMAN DO Jan 24, 2023 10:45
[2023-01-24 10:48] LABS: BASOPHILS % (AUTO) 0 % (0-10); EOSINOPHILS # (AUTO) 0.2 10^3/uL (0.0-0.3); EOSINOPHILS % (AUTO) 2 % (0-10); HEMATOCRIT 54 % (40-54); HEMOGLOBIN 19.6 g/dL (13.3-17.7); LYMPHOCYTES % (AUTO) 21 % (12-44); MEAN CORPUSCULAR HEMOGLOBIN 32 pg (25-34); MEAN CORPUSCULAR HGB CONC 36 g/dL (32-36); MEAN CORPUSCULAR VOLUME 89 fL (80-99); MEAN PLATELET VOLUME 9.7 fL (9.0-12.2); MONOCYTES # (AUTO) 0.8 10^3/uL (0.0-1.0); MONOCYTES % (AUTO) 8 % (0-12); NEUTROPHILS # (AUTO) 6.4 10^3/uL (1.8-7.8); NEUTROPHILS % (AUTO) 68 % (42-75); PLATELET COUNT 164 10^3/uL (130-400); WHITE BLOOD COUNT 9.4 10^3/uL (4.3-11.0)
[2023-01-24 11:00] LABS: ALBUMIN 4.3 GM/DL (3.2-4.5); POTASSIUM 4.3 MMOL/L (3.6-5.0)
[2023-01-24 11:02] LABS: CALCIUM 9.4 MG/DL (8.5-10.1)
[2023-01-24 11:03] LABS: TOTAL PROTEIN 7.5 GM/DL (6.4-8.2)
[2023-01-24 11:05] LABS: BILIRUBIN,TOTAL 1.4 MG/DL (0.1-1.0)
[2023-01-24 11:06] LABS: CREATININE SERUM 1.09 MG/DL (0.60-1.30)
[2023-01-24] MEDS ORDERED: ONDA8TAB13 SL (11:51)
[2023-01-24 12:12] LABS: CLARITY,URINE CLEAR; COLOR,URINE YELLOW; PROTEIN,URINE TRACE (NEGATIVE)
[2023-01-24 12:15] LABS: GLUCOSE, URINE (UA) 1+ (NEGATIVE); KETONES,URINE TRACE (NEGATIVE)
[2023-01-24 12:16] LABS: BACTERIA,URINE NEGATIVE /HPF; BILIRUBIN,URINE NEGATIVE (NEGATIVE); LEUKOCYTE ESTERASE ,URINE NEGATIVE (NEGATIVE); NITRITE,URINE NEGATIVE (NEGATIVE)
[2023-01-24 12:34] VITALS: BP 121/75
== END 2023-01-24 12:34 | disposition home or self-care (01) ==
LOC: EDUNIT# 10:33 → ER 10:35
DX: R11.2 Nausea with vomiting, unspecified (principal); R10.11 Right upper quadrant pain; Z90.49 Acquired absence of other specified parts of digestive tract
CPT/HCPCS: 36415; 80053; 81000; 83690; 85025; 96361; 96374

== ENCOUNTER → 2023-01-28 | Outpatient (CLI) | payer OTHER ==
[~2023-01-28] MED LIST changes: +HOLD METFORMIN - RECEIVED CONTRAST 20 ML VIAL IV SCH; +IOHEXOL 350 MG/ML 100 ML (OMNIPAQUE 350) VIAL IV ONE; +NS 100 ML (IVPB) BAG IV ONE; +ONDA8TAB13 SL
--- NOTE | 2023-01-28 11:49 | Diagnostic Imaging Report ---
CT ABDOMEN/PELVIS W TECHNIQUE: Multiple contiguous axial images were obtained through the abdomen and pelvis after administration of intravenous contrast. All CT scans use one or more of the following dose optimizing techniques: automated exposure control, MA and/or KvP adjustment based on patient size and exam type or iterative reconstruction. INDICATION: Right upper quadrant pain COMPARISON: 10/11/2020 FINDINGS: Lower chest: The lung bases are clear. No pericardial or pleural effusion. Peritoneum: No free intraperitoneal air or fluid. Liver and biliary system: Diffuse low-attenuation liver is indicative of steatosis. No focal hepatic lesion. Cholecystectomy. Spleen and Pancreas: Spleen is normal. The pancreas enhances normally without mass lesion or peripancreatic inflammatory changes. Adrenals: Normal. tract: The kidneys enhance normally without suspicious mass or obstruction. Urinary bladder is distended without wall thickening. Prostate is normal in appearance. GI tract: Stomach is filled fluid and there is no wall thickening. No bowel obstruction. There are scattered hyperintense intraluminal foci within the proximal small bowel that may represent recently ingested medication. No pericolonic inflammatory changes. Normal appendix. Vasculature and Lymph nodes: Normal caliber aorta. No abdominal or pelvic lymphadenopathy. Musculoskeletal: Chronic bilateral pars defects of L5 are stable appearance with approximately 3 mm of anterolisthesis of L5 on S1. IMPRESSION: 1. No acute obstructive or inflammatory process. 2. Unchanged hepatic steatosis. Dictated by: Dictated on workstation # [id number]
== END ==
LOC: RAD 10:15
PROVIDERS: ATTEND Nurse Practitioner Family
DX: K76.0 Fatty (change of) liver, not elsewhere classified (principal); R11.14 Bilious vomiting
CPT/HCPCS: 74177